=== PATIENT | male | born 1955 | race Caucasian/White ===

== ENCOUNTER 2019-11-27 08:00 | Inpatient (IN) | payer BC, MEDICARE ==
[2019-11-29] MEDS ORDERED: Scopolamine 1.5 MG Transdermal Patch TRDERM SCH (06:00)
[2019-11-29] MEDS ORDERED: Famotidine 20 MG/2 ML SDV IVPUSH SCH (06:00)
[2019-11-29] MEDS ORDERED: ceFAZolin 2 GM in Premix Bag 1 BAG IV SCH (08:00)
[2019-11-29] MEDS: Lactated Ringers 1,000 ML IV SCH ×2 (10:06→15:29)
[2019-11-29] MEDS ORDERED: Bupivacaine 0.5% 10 ML SDV ONE ×2 (10:20→10:59)
[2019-11-29] MEDS ORDERED: fentaNYL 100 MCG/2 ML SDV ONE (10:22)
[2019-11-29] MEDS ORDERED: Midazolam 1 MG/ML 2 ML SDV ONE (10:22)
[2019-11-29] MEDS ORDERED: Propofol 200 MG/20 ML SDV ONE (10:22)
[2019-11-29] MEDS ORDERED: Ondansetron 4 MG/2 ML SDV ONE (10:24)
[2019-11-29] MEDS ORDERED: Ketorolac 30 MG/ML SDV ONE (10:24)
[2019-11-29] MEDS ORDERED: Lidocaine 2% 5 ML SDV ONE (10:24)
[2019-11-29] MEDS ORDERED: Glycopyrrolate 0.2 MG/ML SDV ONE (10:24)
--- NOTE | 2019-11-29 10:39 | PCM.PREANE ---
Preanesthetic Assessment - Anesthesia/Transfusion/Family Hx Anesthesia History: Prior Anesthesia Without Reaction Family History of Anesthesia Reaction: No Transfusion History: No Prior Transfusion(s) - Review of Systems General: No Symptoms Pulmonary: No Symptoms Cardiovascular: No Symptoms Gastrointestinal: No Symptoms Neurological: No Symptoms - Physical Assessment NPO Status Date: 11/28/19 NPO Status Time: 21:00 Vital Signs: Last Vital Signs Temp 97.2 F 11/29/19 09:50 Pulse 79 11/29/19 09:50 Resp 18 11/29/19 09:50 BP 166/100 H 11/29/19 09:50 Pulse Ox 100 11/29/19 09:50 Height: 5 ft 9 in Weight: 106.594 kg ASA Class: 2 Mental Status: Alert & Oriented x3 Airway Class: Mallampati = 2 ROM/Head Extension: Full Lungs: Clear to Auscultation, Normal Respiratory Effort Cardiovascular: Regular Rate, Regular Rhythm - Allergies Allergies/Adverse Reactions: Allergies Allergy/AdvReac Type Severity Reaction Status Date / Time No Known Allergies Allergy Verified 11/24/19 11:20 - Blood Blood Available: No - Anesthesia Plan Pre-Op Medication Ordered: None - Acknowledgements Anesthesia Type Planned: Spinal Pt an Appropriate Candidate for the Planned Anesthesia: Yes Alternatives and Risks of Anesthesia Discussed w Pt/Guardian: Yes Pt/Guardian Understands and Agrees with Anesthesia Plan: Yes Additional Comments: PMH: untreated htn, glaucoma spinal with sedation PreAnesthesia Questionnaire HEENT History: Reports: Glaucoma Other HEENT History: wears glasses, top denture, bottom partial Cardiovascular History: Reports: Other (See Below) Other Cardiovascular History: elevated BP at times, on no prescribed medication Respiratory History: Reports: None Gastrointestinal History: Reports: None Genitourinary History: Reports: Renal Calculus Musculoskeletal History: Reports: Osteoarthritis Neurological History: Reports: None Psychiatric History: Reports: None Endocrine/Metabolic History: Reports: Obesity/BMI 30+ Hematologic History: Reports: None Immunologic History: Reports: None Oncologic (Cancer) History: Reports: None Dermatologic History: Reports: None - Past Surgical History Head Surgeries/Procedures: Reports: None HEENT Surgical History: Reports: Tonsillectomy Cardiovascular Surgical History: Reports: None Respiratory Surgical History: Reports: None GI Surgical History: Reports: None Male Surgical History: Reports: Lithotripsy (ESWL) Endocrine Surgical History: Reports: None Neurological Surgical History: Reports: None Musculoskeletal Surgical History: Reports: Other (See Below) Other Musculoskeletal Surgeries/Procedures:: surgery for rt arm injury Oncologic Surgical History: Reports: None Dermatological Surgical History: Reports: None - SUBSTANCE USE Smoking Status *Q: Never Smoker Recreational Drug Use History: No - HOME MEDS Home Medications: Home Meds Glucosam/Chond/Collagen/Hyalur [Glucosamine Chondroitin] 4 tab PO DAILY [History] Latanoprost/Pf [Latanoprost 0.005% Eye Drop] 1 drop EYEBOTH DAILY 11/24/19 [ History] Multivitamin [Multivitamins] 1 tab PO DAILY 11/24/19 [History] Naproxen Sodium [Aleve] 4 tab PO DAILY 11/24/19 [History] Coleman-3 Fatty Acids/Fish Oil [Fish Oil 1,200 mg Softgel] 2 tab PO DAILY [History] - CURRENT (IN HOUSE) MEDS Current Meds: Current Medications Famotidine (Pepcid) 40 mg IVPUSH ONARRIVE [facility] Stop: 11/29/19 16:00 Last Admin: 11/29/19 10:11 Dose: 40 mg Cefazolin Sodium/Dextrose 2 gm (/ Premix) 50 mls @ 100 mls/hr IV ONCALL [facility] Stop: 11/29/19 16:00 Ropivacaine 49.25 ml/Ketorolac Tromethamine 30 mg/Epinephrine HCl 0.5 mg/ Clonidine HCl 80 mcg/ Sodium Chloride 75 mls @ 50 mls/sec INJECT ASDIRECTED [facility] Lactated Ringer's (Ringers, Lactated) 1,000 mls @ 100 mls/hr IV ASDIRECTED [facility] Last Admin: 11/29/19 10:06 Dose: 100 mls/hr Scopolamine (Transderm-Scop) 1.5 mg TRDERM ONARRIVE [facility] Last Admin: 11/29/19 10:08 Dose: 1.5 mg Discontinued Medications Bupivacaine HCl (Sensorcaine-Mpf 0.5%) Confirm Administered Dose 10 ml .ROUTE .STK-MED ONE Stop: 11/29/19 10:21 Fentanyl (Sublimaze) Confirm Administered Dose 100 mcg .ROUTE .STK-MED ONE Stop: 11/29/19 10:23 Glycopyrrolate (Robinul) Confirm Administered Dose 0.2 mg .ROUTE .STK-MED ONE Stop: 11/29/19 10:25 Ketorolac Tromethamine (Toradol) Confirm Administered Dose 30 mg .ROUTE .STK- MED ONE Stop: 11/29/19 10:25 Lidocaine (Xylocaine-Mpf 2%) Confirm Administered Dose 5 ml .ROUTE .STK-MED ONE Stop: 11/29/19 10:25 Midazolam HCl (Versed 1 Mg/Ml) Confirm Administered Dose 2 mg .ROUTE .STK-MED ONE Stop: 11/29/19 10:23 Ondansetron HCl (Zofran) Confirm Administered Dose 4 mg .ROUTE .STK-MED ONE Stop: 11/29/19 10:25 Propofol (Diprivan 20 Ml) Confirm Administered Dose 200 mg .ROUTE .STK-MED ONE Stop: 11/29/19 10:23 Tranexamic Acid (Cyklokapron) 1,000 mg TOP ASDIRECTED ONE Stop: 11/29/19 06:01 Tranexamic Acid (Cyklokapron) Confirm Administered Dose 1,000 mg .ROUTE .STK- MED ONE Stop: 11/29/19 10:35
[2019-11-29] MEDS ORDERED: ceFAZolin 1 GM Vial ONE (11:25)
[2019-11-29] MEDS ORDERED: Sodium Chloride 0.9% 20 ML ONE (11:25)
[2019-11-29] MEDS ORDERED: Phenylephrine/Normal Saline 100 MCG/ML 10 ML Syringe ONE ×2 (11:41→12:48)
[2019-11-29] MEDS ORDERED: Ropivacaine 49.25 ML, Ketorolac 30 MG, EPINEPHrine 0.5 MG, cloNIDine 80 MCG in Sodium C... INJECT SCH (12:45)
[2019-11-29] MEDS ORDERED: traMADol 50 MG Tab PO PRN (13:26)
[2019-11-29] MEDS ORDERED: Acetaminophen/oxyCODONE 325-5 MG Tab PO PRN (13:26)
[2019-11-29] MEDS ORDERED: Morphine 2 MG/ML Syringe IVPUSH PRN (13:26)
[2019-11-29] MEDS ORDERED: Aluminum Hydroxide/Magnesium Hydroxide/Simethicone Susp 30 ML Cup PO PRN (13:26)
[2019-11-29] MEDS ORDERED: Bisacodyl 10 MG Supp RECTAL PRN (13:26)
[2019-11-29] MEDS ORDERED: Sodium Chloride 0.9% 10 ML Syringe FLUSH PRN (13:26)
[2019-11-29] MEDS ORDERED: Docusate Sodium 100 MG Cap PO PRN (13:26)
[2019-11-29] MEDS ORDERED: Sodium Chloride 0.9% 2.5 ML Syringe FLUSH PRN (13:26)
[2019-11-29] MEDS ORDERED: diphenhydrAMINE 25 MG Cap PO PRN (13:26)
[2019-11-29] MEDS ORDERED: Ondansetron 4 MG/2 ML SDV IVPUSH PRN (13:26)
--- NOTE | 2019-11-29 14:23 | PCM.OPNOTE ---
- General Post-Op/Procedure Note Date of Surgery/Procedure: 11/29/19 Operative Procedure(s): left medial pka Pre Op Diagnosis: left knee primary oa Post-Op Diagnosis: Same Anesthesia Technique: General LMA, Spinal Primary Surgeon: Josemanuel Gupta Anesthesia Provider: Florin Longo Welt Pocket Machine Operator: Ellen Nichole EBL in mLs: 50 Complications: None Condition: Good Free Text/Narrative:: Intake & Output 11/28/19 11/29/19 11/29/19 22:59 06:59 14:59 Intake Total 1800 Output Total 400 Balance 1400
[2019-11-29] MEDS: Ketorolac 30 MG/ML SDV IVPUSH SCH ×2 (16:19→18:34)
--- NOTE | 2019-11-29 16:57 | PCM.POSTAN ---
POST ANESTHESIA ASSESSMENT - MENTAL STATUS Mental Status: Alert, Oriented - VITAL SIGNS Vital Signs: Last Vital Signs Temp 97 F 11/29/19 14:15 Pulse 69 11/29/19 16:15 Resp 18 11/29/19 16:15 BP 145/64 H 11/29/19 16:15 Pulse Ox 97 11/29/19 16:15 - RESPIRATORY Respiratory Status: Respiratory Rate WNL, Airway Patent, O2 Saturation Stable - CARDIOVASCULAR CV Status: Pulse Rate WNL, Blood Pressure Stable - GASTROINTESTINAL GI Status: No Symptoms - POST OP HYDRATION Hydration Status: Adequate & Stable
--- NOTE | 2019-11-29 16:57 | PCM48HPAN ---
Post Anesthesia Note - EVALUATION WITHIN 48HRS OF ANESTHETIC Vital Signs in Normal Range: Yes Patient Participated in Evaluation: Yes Respiratory Function Stable: Yes Airway Patent: Yes Cardiovascular Function Stable: Yes Hydration Status Stable: Yes Pain Control Satisfactory: Yes Nausea and Vomiting Control Satisfactory: Yes Mental Status Recovered: Yes Vital Signs: Last Vital Signs Temp 97 F 11/29/19 14:15 Pulse 69 11/29/19 16:15 Resp 18 11/29/19 16:15 BP 145/64 H 11/29/19 16:15 Pulse Ox 97 11/29/19 16:15
--- NOTE | 2019-11-29 17:27 | OR ---
SURGEON: Josemanuel Gupta DATE OF PROCEDURE: 11/29/2019 PREOPERATIVE DIAGNOSIS: Left knee primary osteoarthritis. POSTOPERATIVE DIAGNOSIS: Left knee primary osteoarthritis. PROCEDURE: Left knee medial partial knee arthroplasty. PRIMARY SURGEON: Josemanuel Gupta DO. COPY CENTER ASSOCIATE: KELLEY Ziegler. ROLE OF COPY CENTER ASSOCIATE: Nurse practitioner, KELLEY Ziegler, played an essential role in assisting in this case, helping to position the patient, retract structures as needed, as well as suturing and cutting sutures as indicated. Her presence improved patient's safety and decreased operative time. FLUID: Lactated Ringer's solution. ESTIMATED BLOOD LOSS: 50 mL. COMPLICATION: None. SPECIMEN: None. DISCHARGE DISPOSITION: Stable to PACU. HISTORY AND INDICATION FOR PROCEDURE: The patient was seen preoperatively in the clinic. He failed nonoperative treatment. Preoperative imaging confirmed the above-mentioned diagnosis. Risks and benefits of the procedure explained to the patient. Informed consent was obtained. DETAILS OF PROCEDURE: The patient was seen preoperatively by myself and the Anesthesia staff in the preoperative holding area where the operative site was marked. He was brought to the operative suite by Anesthesia staff where spinal was administered and also an LMA. All extremities found to be well padded. The right lower extremity was placed into a stirrup. The left lower extremity was placed into a thigh hampton. A well-padded tourniquet had been placed on the left thigh and left lower extremity was then prepped and draped in a sterile manner. Time-out was called identifying the correct patient, the correct procedure, the correct site, and that antibiotics had been given within appropriate period of time. Left lower extremity was exsanguinated and tourniquet was raised to 250 mmHg. A medial incision was made from the medial superior aspect of the patella down to the medial aspect of the tibial tubercle. A medial parapatellar arthrotomy was then made. Gelpis were used for retraction. A partial synovectomy was done on the medial side as well as removing the infrapatellar fat pad. The anterior portion of the medial meniscus was removed using Bovie electrocautery. Bovie electrocautery was used for hemostasis during the case as well as tranexamic acid. The proximal tibia was exposed using Bovie electrocautery. I then used an extramedullary tibial guide with a 2 mm proximal cut, pinned this in place in line from tibial tubercle to the 2nd metatarsal and then made my vertical and then horizontal cut. This provided one solid piece of the tibia. This measured a size 4. I then removed any extra bone from the posterior portion of the tibia with osteotomes, curettes, and Tasha. I then removed the posterior portion of the medial meniscus. We then focused on the femur. I brought the leg out in full extension and pinned my distal femoral cutting guide into place and then made my distal femoral cut, which was very little. I then removed the cutting guide, and then using the 7 mm size 4 paddle, marked this throughout range of motion and then genaro a line between the anterior and posterior portion of the distal condyle. I then pinned my chamfer guide in place and then made my chamfer cuts and my two lug cuts. After removing this, it did look like there was a large portion of the posterior condyle removed and there certainly was, however, after removing it, this did line up with my femoral component. I then trialed and had it go up to an 11, however, it did provide good stability throughout range of motion. I then focused on my base plate preparation for my tibia. I used a lamina mill hand plate mill and then used the guide for my gouge cut and then my lug. Lug portion was reamed. I then copiously irrigated with saline. I then cemented my femur and tibial components in good position. I removed any extra cement. I used a paddle and kept the knee in about 20 degrees of flexion. Let the cement dry, then removed any extra cement. I copiously irrigated with saline, provided hemostasis for any small bleeders with Bovie electrocautery, and then inserted my final size 4, 11 mm polyethylene. This provided excellent stability throughout range of motion and corrected slight varus deformity and to approximately 3 to 5 degrees of valgus. We then copiously irrigated with saline. My staff physical therapy assistant then closed with #1 Stratafix in the parapatellar arthrotomy, #1 Stratafix subcutaneously, and then skin lara followed by Betadine-soaked Adaptic, fluffs, ABDs, and an Adalid wrap. The patient was then allowed to awaken from general anesthesia and taken to the PACU in stable condition. [id number] / MODL /[id number]
[2019-11-29] MEDS: ceFAZolin 2 GM in Premix Bag 1 BAG IV SCH (20:47)
[2019-11-30] MEDS: Ketorolac 30 MG/ML SDV IVPUSH SCH (01:33)
[2019-11-30] MEDS: ceFAZolin 2 GM in Premix Bag 1 BAG IV SCH (04:27)
--- NOTE | 2019-11-30 07:29 | PCM48HPAN ---
Post Anesthesia Note - EVALUATION WITHIN 48HRS OF ANESTHETIC Vital Signs in Normal Range: Yes Patient Participated in Evaluation: Yes Respiratory Function Stable: Yes Airway Patent: Yes Cardiovascular Function Stable: Yes Hydration Status Stable: Yes Pain Control Satisfactory: Yes Nausea and Vomiting Control Satisfactory: Yes Mental Status Recovered: Yes Vital Signs: Last Vital Signs Temp 36.4 C 11/30/19 03:30 Pulse 65 11/30/19 03:30 Resp 16 11/30/19 03:30 BP 128/74 11/30/19 03:30 Pulse Ox 96 11/30/19 03:30 - COMMENTS/OBSERVATIONS Free Text/Narrative:: patient sitting up in chair smiling throughout our entire conversation. He appears comfortable and in no acute distress. There were no apparent anesthetic complications at this time. Discharge from anesthesia care.
[2019-11-30] MEDS ORDERED: Polyethylene Glycol 3350 Powder 17 GM Packet PO SCH (09:00)
[2019-11-30] MEDS ORDERED: Aspirin 325 MG Tab PO SCH (09:00)
[2019-11-30] MEDS ORDERED: Celecoxib 100 MG Cap PO SCH (09:00)
[2019-11-30] MEDS ORDERED: Famotidine 20 MG Tab PO SCH (09:00)
--- NOTE | 2019-11-30 10:39 | PCM.SURGPN ---
- General Info Date of Service: 11/30/19 (829) Date of Surgery/Procedure: 11/29/19 POD#: 1 Post-Op Diagnosis: s/p LEFT knee medial partial knee arthroplasty Functional Status: Reports: Pain Controlled, Tolerating Diet, Ambulating (per self with use of walker, up to bathroom), Urinating - Review of Systems General: Reports: No Symptoms. Denies: Fever HEENT: Reports: No Symptoms Pulmonary: Reports: No Symptoms Cardiovascular: Reports: No Symptoms Gastrointestinal: Denies: Nausea, Vomiting Musculoskeletal: Reports: Joint Pain (reports minimal pain left knee) Neurological: Reports: No Symptoms Psychiatric: Reports: No Symptoms - Patient Data Vitals - Most Recent: Last Vital Signs Temp 36.7 C 11/30/19 08:00 Pulse 75 11/30/19 08:00 Resp 16 11/30/19 08:00 BP 128/89 11/30/19 08:00 Pulse Ox 99 11/30/19 08:00 Weight - Most Recent: 106.594 kg I&O - Last 24 Hours: Intake & Output 11/29/19 11/30/19 11/30/19 22:59 06:59 14:59 Intake Total 1007 1365 Output Total 650 850 Balance 357 515 Lab Results Last 24 Hrs: Laboratory Results - last 24 hr 11/30/19 Range/Units 05:51 Hgb 13.7 (13.0-17.0) g/dL Hct 41.6 (38.0-50.0) % Med Orders - Current: Current Medications Al Hydroxide/Mg Hydroxide (Mag-Al Plus) 30 ml PO Q4H PRN PRN Reason: Indigestion Aspirin (Aspirin) 325 mg PO DAILY [facility] Last Admin: 11/30/19 08:08 Dose: 325 mg Bisacodyl (Dulcolax) 10 mg RECTAL DAILY PRN PRN Reason: Constipation Celecoxib (Celebrex) 200 mg PO DAILY [facility] Last Admin: 11/30/19 08:08 Dose: 200 mg Diphenhydramine HCl (Benadryl) 25 - 50 mg PO Q6H PRN PRN Reason: Itching Docusate Sodium (Colace) 100 mg PO BID PRN PRN Reason: Constipation Famotidine (Pepcid) 40 mg PO DAILY [facility] Last Admin: 11/30/19 08:09 Dose: 40 mg Lactated Ringer's (Ringers, Lactated) 1,000 mls @ 100 mls/hr IV ASDIRECTED [facility] Last Admin: 11/29/19 15:29 Dose: 100 mls/hr Morphine Sulfate (Morphine) 1 - 2 mg IVPUSH Q3H PRN PRN Reason: Pain Ondansetron HCl (Zofran) 4 mg IVPUSH Q6H PRN PRN Reason: Nausea/Vomiting Oxycodone/Acetaminophen (Percocet 325-5 Mg) 1 - 2 tab PO Q4H PRN PRN Reason: Pain Polyethylene Glycol (Miralax) 17 gm PO DAILY [facility] Last Admin: 11/30/19 08:09 Dose: 17 gm Scopolamine (Transderm-Scop) 1.5 mg TRDERM ONARRIVE [facility] Last Admin: 11/29/19 10:08 Dose: 1.5 mg Sodium Chloride (Saline Flush) 10 ml FLUSH ASDIRECTED PRN PRN Reason: Keep Vein Open Sodium Chloride (Saline Flush) 2.5 ml FLUSH ASDIRECTED PRN PRN Reason: Keep Vein Open Tramadol HCl (Ultram) 50 - 100 mg PO Q6H PRN PRN Reason: Pain Discontinued Medications Bupivacaine HCl (Sensorcaine-Mpf 0.5%) Confirm Administered Dose 10 ml .ROUTE .STK-MED ONE Stop: 11/29/19 10:21 Bupivacaine HCl (Sensorcaine-Mpf 0.5%) Confirm Administered Dose 10 ml .ROUTE .STK-MED ONE Stop: 11/29/19 11:00 Cefazolin Sodium (Ancef) Confirm Administered Dose 2 gm .ROUTE .STK-MED ONE Stop: 11/29/19 11:26 Famotidine (Pepcid) 40 mg IVPUSH ONARRIVE [facility] Stop: 11/29/19 16:00 Last Admin: 11/29/19 10:11 Dose: 40 mg Fentanyl (Sublimaze) Confirm Administered Dose 100 mcg .ROUTE .STK-MED ONE Stop: 11/29/19 10:23 Glycopyrrolate (Robinul) Confirm Administered Dose 0.2 mg .ROUTE .STK-MED ONE Stop: 11/29/19 10:25 Cefazolin Sodium/Dextrose 2 gm (/ Premix) 50 mls @ 100 mls/hr IV ONCALL [facility] Stop: 11/29/19 16:00 Ropivacaine 49.25 ml/Ketorolac Tromethamine 30 mg/Epinephrine HCl 0.5 mg/ Clonidine HCl 80 mcg/ Sodium Chloride 75 mls @ 50 mls/sec INJECT ASDIRECTED [facility] Sodium Chloride (Normal Saline) Confirm Administered Dose 20 mls @ as directed .ROUTE .STK-MED ONE Stop: 11/29/19 11:26 Cefazolin Sodium/Dextrose 2 gm (/ Premix) 50 mls @ 100 mls/hr IV Q8H [facility] Stop: 11/30/19 04:29 Last Admin: 11/30/19 04:27 Dose: 100 mls/hr Ketorolac Tromethamine (Toradol) Confirm Administered Dose 30 mg .ROUTE .STK- MED ONE Stop: 11/29/19 10:25 Ketorolac Tromethamine (Toradol) 30 mg IVPUSH Q6H [facility] Stop: 11/30/19 05:00 Last Admin: 11/30/19 01:33 Dose: 30 mg Lidocaine (Xylocaine-Mpf 2%) Confirm Administered Dose 5 ml .ROUTE .STK-MED ONE Stop: 11/29/19 10:25 Midazolam HCl (Versed 1 Mg/Ml) Confirm Administered Dose 2 mg .ROUTE .STK-MED ONE Stop: 11/29/19 10:23 Ondansetron HCl (Zofran) Confirm Administered Dose 4 mg .ROUTE .STK-MED ONE Stop: 11/29/19 10:25 Phenylephrine HCl (Phenylephrine In Ns 100 Mcg/Ml) Confirm Administered Dose 1 mg .ROUTE .STK-MED ONE Stop: 11/29/19 11:42 Phenylephrine HCl (Phenylephrine In Ns 100 Mcg/Ml) Confirm Administered Dose 1 mg .ROUTE .STK-MED ONE Stop: 11/29/19 12:49 Propofol (Diprivan 20 Ml) Confirm Administered Dose 200 mg .ROUTE .STK-MED ONE Stop: 11/29/19 10:23 Tranexamic Acid (Cyklokapron) 1,000 mg TOP ASDIRECTED ONE Stop: 11/29/19 06:01 Last Admin: 11/29/19 16:19 Dose: Not Given Tranexamic Acid (Cyklokapron) Confirm Administered Dose 1,000 mg .ROUTE .STK- MED ONE Stop: 11/29/19 10:35 - Exam Wound/Incisions: Dressing Dry and Intact (surgical dressing dry. Removed for incision assessment and new AquaCell bandage applied), No Drainage. No: Erythema Quality Assessment: DVT Prophylaxis (ASA, SCDs bilaterally and early ambulation) General: Alert, Oriented, Cooperative, No Acute Distress HEENT: Pupils Equal Lungs: Normal Respiratory Effort Cardiovascular: Regular Rate (PP2+) Extremities: Normal Capillary Refill, Other (Sensation grossly intact to LE. ). No: Pedal Edema, Gomez's Sign (No calf pain, erythema or swelling. ) Skin: Warm, Dry Neurological: Normal Speech Psy/Mental Status: Alert, Normal Affect, Normal Mood Sepsis Event Note - Evaluation Sepsis Screening Result: No Definite Risk - Focused Exam Vital Signs: Vital Signs Temp Pulse Resp BP Pulse Ox 11/30/19 08:00 36.7 C 75 16 128/89 99 11/30/19 03:30 36.4 C 65 16 128/74 96 11/30/19 00:00 36.2 C 71 16 119/71 96 Date Exam was Performed: 11/30/19 Time Exam was Performed: 10:34 - Problem List Review Problem List Initiated/Reviewed/Updated: Yes - My Orders Last 24 Hours: Active Orders 24 hr Category Date Time Status Communication Order [RC] PRN Care 11/29/19 13:26 Active Cooling Warming Measures [RC] ASDIRECTED Care 11/29/19 13:27 Active Neurovascular Check [RC] Q2HR Care 11/29/19 13:26 Active Notify Provider Vital Signs [RC] ASDIRECTED Care 11/29/19 13:26 Active RT Incentive Spirometry [RC] Q1HWA Care 11/29/19 13:26 Active Vital Signs [RC] Q4H Care 11/29/19 13:26 Active Wound Care [RC] DAILY Care 11/29/19 13:26 Active PT Evaluation and Treatment [CONS] Routine Cons 11/29/19 13:26 Active Regular Diet [DIET] Diet 11/29/19 Dinner Active HEMOGLOBIN/HEMATOCRIT,HH [HEME] DAILY Lab 12/01/19 06:00 Ordered Acetaminophen/oxyCODONE [Percocet 325-5 MG] Med 11/29/19 13:26 Active 1 - 2 tab PO Q4H PRN Alum Hydrox/Mag Hydrox/Simeth [Mag-Al Plus] Med 11/29/19 13:26 Active 30 ml PO Q4H PRN Aspirin Med 11/30/19 09:00 Active 325 mg PO DAILY Celecoxib [CeleBREX] Med 11/30/19 09:00 Active 200 mg PO DAILY Docusate Sodium [Colace] Med 11/29/19 13:26 Active 100 mg PO BID PRN Famotidine [Pepcid] Med 11/30/19 09:00 Active 40 mg PO DAILY Morphine Med 11/29/19 13:26 Active 1 - 2 mg IVPUSH Q3H PRN Ondansetron [Zofran] Med 11/29/19 13:26 Active 4 mg IVPUSH Q6H PRN Sodium Chloride 0.9% [Saline Flush] Med 11/29/19 13:26 Active 10 ml FLUSH ASDIRECTED PRN Sodium Chloride 0.9% [Saline Flush] Med 11/29/19 13:26 Active 2.5 ml FLUSH ASDIRECTED PRN bisacodyL [Dulcolax] Med 11/29/19 13:26 Active 10 mg RECTAL DAILY PRN diphenhydrAMINE [Benadryl] Med 11/29/19 13:26 Active 25 - 50 mg PO Q6H PRN polyethylene glycoL 3350 [MiraLAX] Med 11/30/19 09:00 Active 17 gm PO DAILY traMADol [Ultram] Med 11/29/19 13:26 Active 50 - 100 mg PO Q6H PRN Convert IV to Saline Lock [OM.PC] PRN Ot 11/29/19 13:30 Ordered Convert IV to Saline Lock [OM.PC] PRN Oth 11/30/19 13:30 Ordered Ice Therapy [OM.PC] Routine Ot 11/29/19 13:26 Ordered Medication Orders Al Hydroxide/Mg Hydroxide (Mag-Al Plus) 30 ml PO Q4H PRN PRN Reason: Indigestion Aspirin (Aspirin) 325 mg PO DAILY [facility] Last Admin: 11/30/19 08:08 Dose: 325 mg Bisacodyl (Dulcolax) 10 mg RECTAL DAILY PRN PRN Reason: Constipation Celecoxib (Celebrex) 200 mg PO DAILY [facility] Last Admin: 11/30/19 08:08 Dose: 200 mg Diphenhydramine HCl (Benadryl) 25 - 50 mg PO Q6H PRN PRN Reason: Itching Docusate Sodium (Colace) 100 mg PO BID PRN PRN Reason: Constipation Famotidine (Pepcid) 40 mg PO DAILY [facility] Last Admin: 11/30/19 08:09 Dose: 40 mg Lactated Ringer's (Ringers, Lactated) 1,000 mls @ 100 mls/hr IV ASDIRECTED [facility] Last Admin: 11/29/19 15:29 Dose: 100 mls/hr Infusion: 11/29/19 15:29 Dose: 100 mls/hr Admin: 11/29/19 10:06 Dose: 100 mls/hr Morphine Sulfate (Morphine) 1 - 2 mg IVPUSH Q3H PRN PRN Reason: Pain Ondansetron HCl (Zofran) 4 mg IVPUSH Q6H PRN PRN Reason: Nausea/Vomiting Oxycodone/Acetaminophen (Percocet 325-5 Mg) 1 - 2 tab PO Q4H PRN PRN Reason: Pain Polyethylene Glycol (Miralax) 17 gm PO DAILY [facility] Last Admin: 11/30/19 08:09 Dose: 17 gm Scopolamine (Transderm-Scop) 1.5 mg TRDERM ONARRIVE [facility] Last Admin: 11/29/19 10:08 Dose: 1.5 mg Sodium Chloride (Saline Flush) 10 ml FLUSH ASDIRECTED PRN PRN Reason: Keep Vein Open Sodium Chloride (Saline Flush) 2.5 ml FLUSH ASDIRECTED PRN PRN Reason: Keep Vein Open Tramadol HCl (Ultram) 50 - 100 mg PO Q6H PRN PRN Reason: Pain - Assessment Assessment (Free Text/Narrative):: s/p LEFT knee medial partial arthroplasty - Plan Plan (Free Text/Narrative):: Morning of POD#1, Salo is doing well. Sitting up in chair for breakfast this AM. Last night, he sat at the side of his bed for supper. VSS/Afebrile. Tolerating food/fluids without N/V. Reports minima pain, managed with IV Toradol. Has not necessitated oral Percocet. Independently up to the bathroom with walker, voiding. Surgical dressing removed. Incision CDI with lara. No active drainage. No surrounding erythema. Minimal soft tissue swelling. Using Polar Care ice. DVT prophylaxis : ASA 325mg started today, SCDs bilaterally started in surgery and continued post-operatively, and early ambulation. Compression stockings to be applied this morning. Completed Ancef 2gm IV q8h for an additional 2 doses after surgery. d/t time of his surgery, he did not receive formal PT yesterday. He will have PT today. He feels ready for discharge home today, and I agree with his plan. He already has a walker at home. Will sent Rx for ASA, Celebrex and pain medication to [facility].
--- NOTE | 2019-12-01 08:19 | PCM.DCSUM1 ---
Discharge Summary - Hospital Course Free Text/Narrative:: document #[id number] - Discharge Data Discharge Date: 11/30/19 Discharge Disposition: Home, Self-Care 01 Condition: Good - Referral to Home Health Primary Care Physician: PCP None - Patient Summary/Data Operative Procedure(s) Performed: left medial pka Consults: Consultations 11/29/19 13:26 PT Evaluation and Treatment [CONS] Routine - Patient Instructions Diet: Usual Diet as Tolerated Activity: Apply Ice, Elevate Extremity, No Strenuous Activities Driving: Do Not Drive Showering/Bathing: May Shower Notify Provider of: Fever, Increased Pain, Swelling and Redness, Drainage, Nausea and/or Vomiting Other/Special Instructions: PT as scheduled. If not having moderate pain, substitute Tylenol 325mg 2 tabs po q[address]h in place of narcotic Rx. (Tylenol max/ day is 4000mg. Your pain medication does contain 325mg of acetaminophen). - Discharge Plan Prescriptions/Med Rec: Acetaminophen/oxyCODONE [Percocet 325-5 MG] 1 tab PO Q6H PRN #30 tablet PRN Reason: Pain Aspirin 325 mg PO DAILY #30 tablet Celecoxib [CeleBREX] 200 mg PO DAILY #60 cap Home Medications: Home Meds Glucosam/Chond/Collagen/Hyalur [Glucosamine Chondroitin] 4 tab PO DAILY [History] Latanoprost/Pf [Latanoprost 0.005% Eye Drop] 1 drop EYEBOTH DAILY 11/24/19 [ History] Multivitamin [Multivitamins] 1 tab PO DAILY 11/24/19 [History] [place]-3 Fatty Acids/Fish Oil [Fish Oil 1,200 mg Softgel] 2 tab PO DAILY [History] Acetaminophen/oxyCODONE [Percocet 325-5 MG] 1 tab PO Q6H PRN #30 tablet [Rx] Aspirin 325 mg PO DAILY #30 tablet 11/30/19 [Rx] Celecoxib [CeleBREX] 200 mg PO DAILY #60 cap 11/30/19 [Rx] Patient Handouts: Acetaminophen; Oxycodone tablets, Celecoxib capsules, Total Knee Replacement, Care After, [id number], Aspirin, ASA oral tablets Referrals: Ellen Nichole NP [Nurse Practitioner] - 12/21/19 10:00 am - Discharge Summary/Plan Comment DC Time >30 min.: No - Patient Data Vitals - Most Recent: Last Vital Signs Temp 36.2 C 11/30/19 12:00 Pulse 76 11/30/19 12:00 Resp 18 11/30/19 12:00 BP 154/81 H 11/30/19 12:00 Pulse Ox 99 11/30/19 12:00 Weight - Most Recent: 106.594 kg Med Orders - Current: Current Medications Discontinued Medications Al Hydroxide/Mg Hydroxide (Mag-Al Plus) 30 ml PO Q4H PRN PRN Reason: Indigestion Aspirin (Aspirin) 325 mg PO DAILY [facility] Last Admin: 11/30/19 08:08 Dose: 325 mg Bisacodyl (Dulcolax) 10 mg RECTAL DAILY PRN PRN Reason: Constipation Bupivacaine HCl (Sensorcaine-Mpf 0.5%) Confirm Administered Dose 10 ml .ROUTE .STK-MED ONE Stop: 11/29/19 10:21 Bupivacaine HCl (Sensorcaine-Mpf 0.5%) Confirm Administered Dose 10 ml .ROUTE .STK-MED ONE Stop: 11/29/19 11:00 Cefazolin Sodium (Ancef) Confirm Administered Dose 2 gm .ROUTE .STK-MED ONE Stop: 11/29/19 11:26 Celecoxib (Celebrex) 200 mg PO DAILY [facility] [place] Last Admin: 11/30/19 08:08 Dose: 200 mg Diphenhydramine HCl (Benadryl) 25 - 50 mg PO Q6H PRN PRN Reason: Itching Docusate Sodium (Colace) 100 mg PO BID PRN PRN Reason: Constipation Famotidine (Pepcid) 40 mg IVPUSH ONARRIVE [facility] [place] Stop: 11/29/19 16:00 Last Admin: 11/29/19 10:11 Dose: 40 mg Famotidine (Pepcid) 40 mg PO DAILY [facility] [place] Last Admin: 11/30/19 08:09 Dose: 40 mg Fentanyl (Sublimaze) Confirm Administered Dose 100 mcg .ROUTE .STK-MED ONE Stop: 11/29/19 10:23 Glycopyrrolate (Robinul) Confirm Administered Dose 0.2 mg .ROUTE .STK-MED ONE Stop: 11/29/19 10:25 Cefazolin Sodium/Dextrose 2 gm (/ Premix) 50 mls @ 100 mls/hr IV ONCALL [facility] [place] Stop: 11/29/19 16:00 Ropivacaine 49.25 ml/Ketorolac Tromethamine 30 mg/Epinephrine HCl 0.5 mg/ Clonidine HCl 80 mcg/ Sodium Chloride 75 mls @ 50 mls/sec INJECT ASDIRECTED [facility] [place] Lactated Ringer's (Ringers, Lactated) 1,000 mls @ 100 mls/hr IV ASDIRECTED [facility] [place] Last Admin: 11/29/19 15:29 Dose: 100 mls/hr Sodium Chloride (Normal Saline) Confirm Administered Dose 20 mls @ as directed .ROUTE .STK-MED ONE Stop: 11/29/19 11:26 Cefazolin Sodium/Dextrose 2 gm (/ Premix) 50 mls @ 100 mls/hr IV Q8H [facility] [place] Stop: 11/30/19 04:29 Last Admin: 11/30/19 04:27 Dose: 100 mls/hr Ketorolac Tromethamine (Toradol) Confirm Administered Dose 30 mg .ROUTE .STK- MED ONE Stop: 11/29/19 10:25 Ketorolac Tromethamine (Toradol) 30 mg IVPUSH Q6H [facility] [place] Stop: 11/30/19 05:00 Last Admin: 11/30/19 01:33 Dose: 30 mg Lidocaine (Xylocaine-Mpf 2%) Confirm Administered Dose 5 ml .ROUTE .STK-MED ONE Stop: 11/29/19 10:25 Midazolam HCl (Versed 1 Mg/Ml) Confirm Administered Dose 2 mg .ROUTE .STK-MED ONE Stop: 11/29/19 10:23 Morphine Sulfate (Morphine) 1 - 2 mg IVPUSH Q3H PRN PRN Reason: Pain Ondansetron HCl (Zofran) Confirm Administered Dose 4 mg .ROUTE .STK-MED ONE Stop: 11/29/19 10:25 Ondansetron HCl (Zofran) 4 mg IVPUSH Q6H PRN PRN Reason: Nausea/Vomiting Oxycodone/Acetaminophen (Percocet 325-5 Mg) 1 - 2 tab PO Q4H PRN PRN Reason: Pain Last Admin: 11/30/19 13:16 Dose: 1 tab Phenylephrine HCl (Phenylephrine In Ns 100 Mcg/Ml) Confirm Administered Dose 1 mg .ROUTE .STK-MED ONE Stop: 11/29/19 11:42 Phenylephrine HCl (Phenylephrine In Ns 100 Mcg/Ml) Confirm Administered Dose 1 mg .ROUTE .STK-MED ONE Stop: 11/29/19 12:49 Polyethylene Glycol (Miralax) 17 gm PO DAILY [facility] [place] Last Admin: 11/30/19 08:09 Dose: 17 gm Propofol (Diprivan 20 Ml) Confirm Administered Dose 200 mg .ROUTE .STK-MED ONE Stop: 11/29/19 10:23 Scopolamine (Transderm-Scop) 1.5 mg TRDERM ONARRIVE [facility] [place] Last Admin: 11/29/19 10:08 Dose: 1.5 mg Sodium Chloride (Saline Flush) 10 ml FLUSH ASDIRECTED PRN PRN Reason: Keep Vein Open Sodium Chloride (Saline Flush) 2.5 ml FLUSH ASDIRECTED PRN PRN Reason: Keep Vein Open Tramadol HCl (Ultram) 50 - 100 mg PO Q6H PRN PRN Reason: Pain Last Admin: 11/30/19 14:09 Dose: 100 mg Tranexamic Acid (Cyklokapron) 1,000 mg TOP ASDIRECTED ONE Stop: 11/29/19 06:01 Last Admin: 11/29/19 16:19 Dose: Not Given Tranexamic Acid (Cyklokapron) Confirm Administered Dose 1,000 mg .ROUTE .STK- MED ONE Stop: 11/29/19 10:35
--- NOTE | 2019-12-01 16:57 | DISCH ---
DATE OF DISCHARGE: 11/30/2019 PRIMARY CARE PHYSICIAN: Dr. Shah ADMITTING DIAGNOSIS: Left knee primary osteoarthritis. DISCHARGE MEDICAL DIAGNOSIS: Status post left knee medial partial knee arthroplasty. HISTORY: This is 64-year-old male who failed conservative treatment for left knee pain, underwent left knee medial partial knee arthroplasty on 11/29/[address] Josemanuel Gupta. No known surgical complications. After PACU, inpatient to Med/Surg for postop care. HOSPITAL COURSE: Postoperatively, Salo did very well. Vital signs stable, afebrile. He had minimal pain postoperatively, overall managed with routine Toradol until postop day 1. Physical therapy was initiated in the hospital postop day 1. That morning, he was ambulating well independently with walker. Hemoglobin stable at 13.7. Antibiotic coverage included Ancef 2 g q.8 hours for 24 hours. Minimal drainage on surgical dressing. This was removed postop day 1 and incision assessed to be clean, dry, and intact with lara with no surrounding erythema or active drainage. Large Aquacel was applied. Diligent use of Polar Ice therapy. DVT prophylaxis included aspirin 325 mg, SCDs bilaterally, and early ambulation. The patient felt ready for discharge and was discharged postop day 1. DISCHARGE MEDICATIONS: 1. Percocet 5/325 mg 1 tablet q.6 hours p.r.n. 2. Aspirin 325 mg daily. 3. Celebrex 200 mg daily. 4. Glucosamine-chondroitin daily. 5. Latanoprost 0.005% eye drops, 1 drop both eyes daily. 6. Multivitamin daily. 7. [place]-3 fatty acids/fish oil daily. Discharged home postop day 1 after physical therapy sessions. He was discharged home with his . Followup appointment scheduled in 3 weeks for suture removal. He will begin physical therapy on December 04, 2019. He was advised to contact [facility] with any acute concerns or questions. NORBCHE / MODL /[id number]
== END 2019-11-30 14:20 | disposition home or self-care (01) | DRG 302 ==
LOC: MW.MS 11-29 09:30 → EDSTATUS 11-29 12:30
PROVIDERS: ADMIT Orthopaedic Surgery; ATTEND Orthopaedic Surgery
PROC: 0SRD0L9 Replacement of Left Knee Joint with Medial Unicondylar Synthetic Substitute, Cemented, Open Approach (ICD-10-PCS; principal; 2019-11-29)
DX: M17.12 Unilateral primary osteoarthritis, left knee (principal); F17.220 Nicotine dependence, chewing tobacco, uncomplicated; Z79.899 Other long term (current) drug therapy
CPT/HCPCS: 01402; 36415; 85014; 85018; 97116-GP; 97162-GP; A9270-GY; J0690; J1885; J2001; J2250; J2370; J2405; J2704; J3010; J3490; J7120

== ENCOUNTER 2020-10-28 09:20 | Day surgery (SDC) | payer BC, MEDICARE ==
[~2020-10-28 09:20] MED LIST: Famotidine 20 MG/2 ML SDV IVPUSH SCH; Lactated Ringers 1,000 ML IV SCH; Ropivacaine 49.25 ML, Ketorolac 30 MG, EPINEPHrine 0.5 MG, cloNIDine 80 MCG in Sodium C... INJECT SCH; Scopolamine 1.5 MG Transdermal Patch TRDERM SCH; Sodium Chloride 0.9% 20 ML ONE; Tranexamic Acid 1,000 MG in Sodium Chloride 0.9% 100 ML IV ONE; ceFAZolin 2 GM in Premix Bag 1 BAG IV SCH
[2020-10-28] MEDS ORDERED: fentaNYL 100 MCG/2 ML SDV ONE ×2 (09:28→11:11)
[2020-10-28] MEDS ORDERED: Midazolam 1 MG/ML 2 ML SDV ONE (09:28)
[2020-10-28] MEDS ORDERED: Propofol 200 MG/20 ML SDV ONE (09:28)
[2020-10-28] MEDS ORDERED: Bupivacaine 0.5% 30 ML SDV ONE (09:41)
[2020-10-28] MEDS ORDERED: ceFAZolin/Dextrose,Iso-Osmotic 2 GM/50 ML Duplex Bag IV ONE (09:48)
--- NOTE | 2020-10-28 10:08 | PCM.PREANE ---
Preanesthetic Assessment - Anesthesia/Transfusion/Family Hx Anesthesia History: Prior Anesthesia Without Reaction Family History of Anesthesia Reaction: No Transfusion History: No Prior Transfusion(s) - Review of Systems General: No Symptoms Pulmonary: No Symptoms Cardiovascular: No Symptoms Gastrointestinal: No Symptoms Neurological: No Symptoms Other: Reports: None - Physical Assessment NPO Status Date: 10/27/20 Height: 5 ft 9 in Weight: 104.326 kg ASA Class: 2 Mental Status: Alert & Oriented x3 Airway Class: Mallampati = 2 Dentition: Reports: Normal Dentition ROM/Head Extension: Full Lungs: Clear to Auscultation, Normal Respiratory Effort Cardiovascular: Regular Rate, Regular Rhythm - Lab Values: Laboratory Last Values SARS-CoV-2 RNA ([facility]) NEGATIVE (NEGATIVE) 10/28/20 08:09 - Allergies Allergies/Adverse Reactions: Allergies Allergy/AdvReac Type Severity Reaction Status Date / Time No Known Allergies Allergy Verified 10/08/20 08:39 - Blood Blood Available: No - Anesthesia Plan Pre-Op Medication Ordered: None - Acknowledgements Anesthesia Type Planned: Spinal Pt an Appropriate Candidate for the Planned Anesthesia: Yes Alternatives and Risks of Anesthesia Discussed w Pt/Guardian: Yes Pt/Guardian Understands and Agrees with Anesthesia Plan: Yes PreAnesthesia Questionnaire HEENT History: Reports: Glaucoma, Impaired Vision Other HEENT History: wears glasses, top denture, bottom partial Cardiovascular History: Reports: Hypertension Respiratory History: Reports: None Gastrointestinal History: Reports: None Genitourinary History: Reports: Renal Calculus Musculoskeletal History: Reports: Arthritis, Fracture Other Musculoskeletal History: fractured right arm Neurological History: Reports: None Psychiatric History: Reports: None Endocrine/Metabolic History: Reports: Obesity/BMI 30+ Hematologic History: Reports: None Immunologic History: Reports: None Oncologic (Cancer) History: Reports: None Dermatologic History: Reports: None - Infectious Disease History Infectious Disease History: Reports: None - Past Surgical History Head Surgeries/Procedures: Reports: None HEENT Surgical History: Reports: Tonsillectomy Cardiovascular Surgical History: Reports: None Respiratory Surgical History: Reports: None GI Surgical History: Reports: None Endocrine Surgical History: Reports: None Neurological Surgical History: Reports: None Musculoskeletal Surgical History: Reports: Knee Replacement Other Musculoskeletal Surgeries/Procedures:: left partial knee replacement Oncologic Surgical History: Reports: None Dermatological Surgical History: Reports: None - SUBSTANCE USE Tobacco Use Within Last Twelve Months: Snuff/Dip - HOME MEDS Home Medications: Home Meds Glucosam/Chond/Collagen/Hyalur [Glucosamine Chondroitin] 4 tab PO DAILY 11/24/19 [History] Latanoprost/Pf [Latanoprost 0.005% Eye Drop] 1 drop EYEBOTH DAILY 11/24/19 [History] Multivitamin [Multivitamins] 1 tab PO DAILY 11/24/19 [History] [place]-3 Fatty Acids/Fish Oil [Fish Oil 1,200 mg Softgel] 2 tab PO DAILY 11/24/19 [History] Ascorbic Acid [Vitamin C] 1 tab PO DAILY 10/08/20 [History] Latanoprost/Pf [Latanoprost 0.005% Eye Drop] 1 drop EYEBOTH DAILY 10/08/20 [History] Losartan [Cozaar] 1 tab PO DAILY 10/08/20 [History] Metoprolol Succinate 1 tab PO DAILY 10/08/20 [History] Naproxen Sodium [Aleve] 1 tab PO ASDIRECTED PRN 10/08/20 [History] Phytonadione [Vitamin K] 1 tab PO DAILY 10/08/20 [History] - CURRENT (IN HOUSE) MEDS Current Meds: Current Medications Famotidine (Pepcid) 40 mg IVPUSH ONARRIVE [facility] Famotidine (Pepcid) 40 mg IVPUSH ONARRIVE [facility] Ropivacaine 49.25 ml/Ketorolac Tromethamine 30 mg/Epinephrine HCl 0.5 mg/Clonidine HCl 80 mcg/ Sodium Chloride 75 mls @ 50 mls/sec INJECT ASDIRECTED [facility] Cefazolin Sodium/Dextrose 2 gm (/ Premix) 50 mls @ 100 mls/hr IV ONCALL [facility] Lactated Ringer's (Ringers, Lactated) 1,000 mls @ 100 mls/hr IV ASDIRECTED [facility] Lactated Ringer's (Ringers, Lactated) 1,000 mls @ 100 mls/hr IV ASDIRECTED DK Ropivacaine 49.25 ml/Ketorolac Tromethamine 30 mg/Epinephrine HCl 0.5 mg/Clonidine HCl 80 mcg/ Sodium Chloride 75 mls @ 50 mls/sec INJECT ASDIRECTED [facility] Cefazolin Sodium/Dextrose 2 gm (/ Premix) 50 mls @ 100 mls/hr IV ONCALL [facility] Scopolamine (Transderm-Scop) 1.5 mg TRDERM ONARRIVE [facility] Scopolamine (Transderm-Scop) 1.5 mg TRDERM ONARRIVE [facility] Discontinued Medications Bupivacaine HCl (Marcaine 0.5%) Confirm Administered Dose 30 ml .ROUTE .STK-MED ONE Stop: 10/28/20 09:42 Cefazolin Sodium/Dextrose (Ancef) Confirm Administered Dose 2 gm IV .STK-MED ONE Stop: 10/28/20 09:49 Fentanyl (Sublimaze) Confirm Administered Dose 100 mcg .ROUTE .STK-MED ONE Stop: 10/28/20 09:29 Tranexamic Acid 1,000 mg/ (Sodium Chloride) 110 mls @ 600 mls/hr IV ASDIRECTED ONE Stop: 10/14/20 06:10 Sodium Chloride (Normal Saline) Confirm Administered Dose 20 mls @ as directed .ROUTE .STK-MED ONE Stop: 10/28/20 07:17 Acetaminophen (Ofirmev) Confirm Administered Dose 100 mls @ as directed .ROUTE .STK-MED ONE Stop: 10/28/20 09:34 Lidocaine HCl (Xylocaine-Mpf 1%) Confirm Administered Dose 5 ml .ROUTE .STK-MED ONE Stop: 10/28/20 09:29 Midazolam HCl (Versed 1 Mg/Ml) Confirm Administered Dose 2 mg .ROUTE .STK-MED ONE Stop: 10/28/20 09:29 Propofol (Diprivan 20 Ml) Confirm Administered Dose 200 mg .ROUTE .STK-MED ONE Stop: 10/28/20 09:29 Tranexamic Acid (Cyklokapron) 1,000 mg TOP ASDIRECTED ONE Stop: 10/28/20 06:01 Tranexamic Acid (Cyklokapron) Confirm Administered Dose 1,000 mg .ROUTE .STK-MED ONE Stop: 10/28/20 07:27
[2020-10-28] MEDS ORDERED: Ondansetron 4 MG/2 ML SDV ONE (10:43)
[2020-10-28] MEDS ORDERED: ePHEDrine 50 MG/ML SDV ONE (10:43)
[2020-10-28] MEDS ORDERED: Dexamethasone 4 MG/ML 5 ML MDV ONE (10:43)
--- NOTE | 2020-10-28 11:06 | PCM.SN.2 ---
- Free Text/Narrative Note: 1016: consent signed. single shot right femoral nerve block with nerve stimulator needle done with a sterile technique by Florin Longo and I assisted. right inguinal area prepped with chlorhexidine, and draped. right femoral artery palpated. 1%lidocaine 2 ml for skin infiltration. 4 inch 20 gauge stimuplex needle used and flushed with normal saline. placed in skin-aspiration negative. +patellar motion at 0.6 mA. total 25 ml of 0.5 % Bupivacaine given with 5 ml injection with aspirations x5. All aspirations were negative. There was no pain or paresthesias with the injections. The patient was able to communicate throughout the entire procedure. 10:21: spinal done with a sterile technique, back prepped and draped with chlorhexidine. 1% lidocaine 3ml given for skin infiltration at l3-l4. 22 gauge spinocan needle used. +csf, no heme or paresthesias with injection. T8 level. Patient was able to communicate throughout the entire procedure. T8 level.
[2020-10-28] MEDS ORDERED: 50% Dextrose in Water 50 ML Syringe IVPUSH PRN (11:28)
[2020-10-28] MEDS ORDERED: HYDROmorphone 2 MG/ML Syringe IVPUSH PRN (11:28)
[2020-10-28] MEDS ORDERED: EPINEPHrine 1:10,000 1 MG/10 ML Syringe IVPUSH PRN (11:28)
[2020-10-28] MEDS ORDERED: Atropine 0.1 MG/ML 10 ML Syringe IVPUSH PRN ×2 (11:28)
[2020-10-28] MEDS ORDERED: Albuterol 0.083% 2.5 MG/3 ML Neb Soln NEB PRN (11:28)
[2020-10-28] MEDS ORDERED: Naloxone 0.4 MG/ML Syringe IVPUSH PRN (11:28)
[2020-10-28] MEDS ORDERED: Ondansetron 4 MG/2 ML SDV IVPUSH PRN ×2 (11:28→12:50)
[2020-10-28] MEDS ORDERED: fentaNYL 100 MCG/2 ML SDV IVPUSH PRN (11:28)
--- NOTE | 2020-10-28 12:26 | PCM.OPNOTE ---
- General Post-Op/Procedure Note Date of Surgery/Procedure: 10/28/20 Operative Procedure(s): r tka Findings: right knee tricompartmental grade iv oa Pre Op Diagnosis: right knee oa Post-Op Diagnosis: Same Anesthesia Technique: Combo Spinal/Epidural, Regional Block Primary Surgeon: Josemanuel Gupta Net Ui Developer: Ellen Nichole EBL in mLs: 50 Complications: None Condition: Good
[2020-10-28] MEDS ORDERED: Labetalol 100 MG/20 ML MDV ONE (12:38)
[2020-10-28] MEDS ORDERED: diphenhydrAMINE 25 MG Cap PO PRN (12:50)
[2020-10-28] MEDS ORDERED: traMADol 50 MG Tab PO PRN (12:50)
[2020-10-28] MEDS ORDERED: Docusate Sodium 100 MG Cap PO PRN (12:50)
[2020-10-28] MEDS ORDERED: Bisacodyl 10 MG Supp RECTAL PRN (12:50)
[2020-10-28] MEDS ORDERED: Acetaminophen/oxyCODONE 325-5 MG Tab PO PRN (12:50)
[2020-10-28] MEDS ORDERED: Sodium Chloride 0.9% 10 ML Syringe FLUSH PRN (12:50)
[2020-10-28] MEDS ORDERED: Aluminum Hydroxide/Magnesium Hydroxide/Simethicone Susp 30 ML Cup PO PRN (12:50)
[2020-10-28] MEDS ORDERED: Sodium Chloride 0.9% 2.5 ML Syringe FLUSH PRN (12:50)
[2020-10-28] MEDS ORDERED: Morphine 2 MG/ML SYRINGE IVPUSH PRN (12:50)
--- NOTE | 2020-10-28 13:17 | PCM.POSTAN ---
POST ANESTHESIA ASSESSMENT - MENTAL STATUS Mental Status: Alert, Oriented - VITAL SIGNS Vital Signs: Last Vital Signs Temp 97.7 F 10/28/20 12:44 Pulse 72 10/28/20 13:09 Resp 12 10/28/20 13:09 BP 125/65 10/28/20 13:09 Pulse Ox 95 10/28/20 13:09 - RESPIRATORY Respiratory Status: Respiratory Rate WNL, Airway Patent, O2 Saturation Stable - CARDIOVASCULAR CV Status: Pulse Rate WNL, Blood Pressure Stable - GASTROINTESTINAL GI Status: No Symptoms - POST OP HYDRATION Hydration Status: Adequate & Stable
--- NOTE | 2020-10-28 13:57 | CR ---
Indication: Right knee arthroplasty Technique: Two views of the right knee were acquired Comparison: A preoperative study of September 17, 2020 Findings: There are findings of a right knee arthroplasty. Impression: Expected immediate postoperative appearance of the right knee status post arthroplasty. No unexpected findings. Dictated by Irwin Torres MD @ Oct 28 2020 1:55PM Signed by Dr. Irwin Torres @ Oct 28 2020 1:56PM
[2020-10-28] MEDS: Ketorolac 15 MG/ML SDV IVPUSH SCH ×2 (14:08→18:24)
[2020-10-28 15:08] LABS: BLOOD UREA NITROGEN,BUN 14 mg/dL (7.0-18.0); CARBON DIOXIDE,CO2 25.9 mmol/L (21.0-32.0); CHLORIDE,CL 105 mmol/L (98-107); GLUCOSE RANDOM 124 mg/dL (74-106); POTASSIUM,K 4.3 mmol/L (3.5-5.1); SODIUM,NA 138 mmol/L (136-148)
--- NOTE | 2020-10-28 15:14 | OR ---
SURGEON: Josemanuel Gupta DATE OF PROCEDURE: 10/28/2020 PREOPERATIVE DIAGNOSIS: Right knee tricompartmental osteoarthritis. POSTOPERATIVE DIAGNOSIS: Right knee tricompartmental osteoarthritis. PROCEDURE: Right knee total knee arthroplasty. PRIMARY SURGEON: Josemanuel Gupta DO COLLAR BASTER JUMPBASTING: KELLEY Ziegler ROLE OF COLLAR BASTER JUMPBASTING: Nurse practitioner, KELLEY Ziegler, played an essential role in assisting in this case, helping to position the patient, retract structures as needed, as well as suturing and cutting sutures as indicated. Her presence improved patient's safety and decreased operative time. ANESTHESIA: Spinal plus regional femoral block. FLUID: Lactated Ringer's solution. ESTIMATED BLOOD LOSS: 50 mL. COMPLICATIONS: None. SPECIMEN: None. DISCHARGE DISPOSITION: Stable to PACU. INSTRUMENTATION: Rolla Triathlon knee, size 6 femur, size 6 tibia, 9 mm polyethylene insert, and 35 mm domed medialized patella which was polyethylene. HISTORY AND INDICATIONS FOR THE PROCEDURE: The patient is well known to me. We had previously performed a left medial partial knee arthroplasty on him. Risks and goals of the procedure were explained to the patient. Preoperative imaging confirmed the above-mentioned diagnosis. Informed consent was obtained. DETAILS OF PROCEDURE: The patient was seen preoperatively by myself and the Anesthesia staff in the preoperative holding area where the operative site was marked. He was brought to the operative suite by Anesthesia staff where spinal was performed plus regional block. All extremities were found to be well padded. A sterile Pickett catheter was placed. A well-padded tourniquet was placed on the right thigh. The right lower extremity was then prepped and draped in a sterile manner. Time- out was called identifying the correct patient, the correct procedure, the correct site, and that antibiotics had been given within appropriate period of time. The right lower extremity was exsanguinated. Tourniquet was raised to 250 mmHg and taken down at 64 minutes. A midline incision was made from approximately 3- 1/2 fingerbreadths proximal to the patella down to the level of the distal tibial tubercle. Bleeding was controlled with Bovie electrocautery. The medial proximal tibia was then visualized with Bovie electrocautery. A full synovectomy was performed using Bovie electrocautery and Kochers. We then everted the patella and then flexed the knee up and it was held with a towel clip and rongeurs. I then made two 90-degree cuts on the patella and then placed my 35 mm guide, drilled three holes, and then placed the patellar trial button. I then reamed the distal femur and then inserted my intramedullary guide at 5-degree valgus, pinned this in place, removed the intramedullary portion of the guide, and then made my distal femoral cut. I protected the medial and lateral collateral ligaments during this part and the remainder of the procedure with two sharp Hohmanns. I then flexed the knee up and used my posterior condylar guide, which measured a size 6. I then drilled the two holes for the guide and then placed my chamfer block. I then made my anterior, posterior, and chamfer cuts and then removed any extra bone. I then placed my trimming department blocker on the tibia and pinned this in place and then used a reciprocating saw to take out my notch and then removed that bone with the use of Tasha and electrocautery. I then placed Hohmanns medial and laterally and then used a forked retractor on the posterior tibia to anteriorize it. I then placed my extramedullary guide in line with the tibial tubercle, tibial spine, and then the second metatarsal. I fixed this in place and then pinned the guide. I then removed the large portion of the guide, and then protecting my collaterals in posterior knee, I then made my proximal tibia cut. I did use a 2 mm stylus guide to make sure my depth was correct. This was done on the medial side. After this had been accomplished, I then removed my pins and the Hohmanns and then I used a lamina pedodontist medially and laterally and removed posterior osteophytes. I took an extended amount of time to remove my lateral posterior osteophyte as it was very large and was attached to the tissue, so I took a great deal of time to make sure that we stayed right on bone with the Bovie electrocautery unit as to not damage any of the soft tissues. After the menisci had then been removed posteriorly as well, I then used my Hohmanns and anteriorized the tibia again and then placed my base plate, reamed and tamped, and then pinned my tibial insert and then followed by the femur. This provided good range of motion and stability. I then removed all my components, copiously irrigated with saline, and then dried this using a lap and then cemented my components in place. The knee was held in just slightly internal rotation with full extension. While this dried, I applied TXA to the knee and laps and then took down my tourniquet at 64 minutes. After the cement dried, I then removed any extra cement. I removed my tibial trial insert and examined the posterior portion of the knee that did not have any extra cement visible. We then copiously irrigated again with saline and then inserted my final tibial polyethylene insert. This provided good range of motion and stability. We then irrigated again with Betadine-infused irrigation and then closed the parapatellar arthrotomy with two #5 Ethibond sutures. My assist then closed the parapatellar arthrotomy in a watertight manner with 0 Stratafix, followed by subcutaneous closed with #1 Stratafix, followed by skin lara, followed by Betadine-soaked Adaptic and a sterile dressing. The patient was then allowed to awaken from conscious sedation and taken to the PACU in stable condition. [id number] / MODL /[id number]
[2020-10-28 16:13] LABS: HEMOGLOBIN A1C 5.7 %
--- NOTE | 2020-10-28 16:22 | PCM.CONS ---
H&P History of Present Illness - General Date of Service: 10/28/20 Admit Problem/Dx: Admission Diagnosis/Problem Admission Diagnosis/Problem Knee pain Source of Information: Patient History Limitations: Reports: No Limitations - History of Present Illness Initial Comments - Free Text/Narative: This 65-year-old male with past medical history of hypertension and previous left total knee presented today for right total knee with Dr. Gupta. Hospitalist service was consulted for medical management of hypertension. Salo reports he was recently diagnosed with hypertension and started on metoprolol and losartan. He reports he has been doing well at home. Denies any chest pain shortness of breath. Does report mild leg swelling intermittently. Denies any leg pain. Denies any recent fevers chills sinus congestion or neck pain. No abdominal pain he is urinating well. He has recently returned to [facility] floor from PACU. Reports knee pain is tolerable. He reports no other concerns or questions at this time. He reports he chews tobacco no tobacco smoking. No recreational drug use and no alcohol use. He denies any history of CAD or DM type II. Unsure if recent lab studies have been done to evaluate for HLD or diabetes. Upon review of chart and [facility], does not reveal any recent laboratory studies including TSH A1c or lipid panel. - Related Data Allergies/Adverse Reactions: Allergies Allergy/AdvReac Type Severity Reaction Status Date / Time No Known Allergies Allergy Verified 10/28/20 10:30 Home Medications: Home Meds Glucosam/Chond/Collagen/Hyalur [Glucosamine Chondroitin] 4 tab PO DAILY 11/24/19 [History] Multivitamin [Multivitamins] 1 tab PO DAILY 11/24/19 [History] [place]-3 Fatty Acids/Fish Oil [Fish Oil 1,200 mg Softgel] 2 tab PO DAILY 11/24/19 [History] Ascorbic Acid [Vitamin C] 1 tab PO DAILY 10/08/20 [History] Latanoprost/Pf [Latanoprost 0.005% Eye Drop] 1 drop EYEBOTH DAILY 10/08/20 [History] Losartan [Cozaar] 1 tab PO DAILY 10/08/20 [History] Metoprolol Succinate 1 tab PO DAILY 10/08/20 [History] Naproxen Sodium [Aleve] 1 tab PO ASDIRECTED PRN 10/08/20 [History] Phytonadione [Vitamin K] 1 tab PO DAILY 10/08/20 [History] Past Medical History HEENT History: Reports: Glaucoma, Impaired Vision Other HEENT History: wears glasses, top denture, bottom partial Cardiovascular History: Reports: Hypertension Respiratory History: Reports: None Gastrointestinal History: Reports: None Genitourinary History: Reports: Renal Calculus Musculoskeletal History: Reports: Arthritis, Fracture Other Musculoskeletal History: fractured right arm Neurological History: Reports: None Psychiatric History: Reports: None Endocrine/Metabolic History: Reports: Obesity/BMI 30+ Hematologic History: Reports: None Immunologic History: Reports: None Oncologic (Cancer) History: Reports: None Dermatologic History: Reports: None - Infectious Disease History Infectious Disease History: Reports: None - Past Surgical History Head Surgeries/Procedures: Reports: None HEENT Surgical History: Reports: Tonsillectomy Cardiovascular Surgical History: Reports: None Respiratory Surgical History: Reports: None GI Surgical History: Reports: None Endocrine Surgical History: Reports: None Neurological Surgical History: Reports: None Musculoskeletal Surgical History: Reports: Knee Replacement Other Musculoskeletal Surgeries/Procedures:: left partial knee replacement Oncologic Surgical History: Reports: None Dermatological Surgical History: Reports: None Social & Family History - Family History Family Medical History: No Pertinent Family History - Tobacco Use Years of Tobacco use: 55 - Recreational Drug Use Drug Use in Last 12 Months: No H&P Review of Systems - Review of Systems: Review Of Systems: See Below General: Reports: No Symptoms. Denies: Fever, Chills, Malaise Pulmonary: Reports: No Symptoms. Denies: Shortness of Breath, Pleuritic Chest Pain, Cough Cardiovascular: Reports: No Symptoms. Denies: Chest Pain Gastrointestinal: Reports: No Symptoms. Denies: Abdominal Pain Genitourinary: Reports: No Symptoms. Denies: Dysuria, Frequency Musculoskeletal: Reports: Joint Pain (Right knee) Skin: Reports: No Symptoms Psychiatric: Reports: No Symptoms Neurological: Reports: No Symptoms Hematologic/Lymphatic: Reports: No Symptoms Immunologic: Reports: No Symptoms Exam - Exam Exam: See Below - Vital Signs Vital Signs: Last Vital Signs Temp 97.7 F 10/28/20 12:44 Pulse 60 10/28/20 13:24 Resp 17 10/28/20 13:24 BP 122/62 10/28/20 13:24 Pulse Ox 93 L 10/28/20 13:24 Weight: 104.326 kg - Exam Quality Assessment: No: Supplemental Oxygen General: Alert, Oriented, Cooperative Lungs: Clear to Auscultation, Normal Respiratory Effort Cardiovascular: Regular Rate, Regular Rhythm GI/Abdominal Exam: Normal Bowel Sounds, Soft, Non-Tender Extremities: Normal Inspection, Normal Range of Motion, Non-Tender, Pedal Edema (+1 nonpitting edema bilaterally) Skin: Incision (Right knee with Adalid wrap and polar ice intact no drainage noted.) Neuro Extensive - Mental Status: Alert, Oriented x3 Neuro Extensive - Motor, Sensory, Reflexes: CN II-XII Intact Psychiatric: Alert, Normal Affect, Normal Mood - Patient Data Lab Results Last 24 hrs: Laboratory Results - last 24 hr 10/28/20 10/28/20 10/28/20 Range/Units 08:09 09:43 14:33 WBC 14.61 H (4.0-11.0) K/uL RBC 4.58 (4.50-5.90) M/uL Hgb 13.7 (13.0-17.0) g/dL Hct 42.0 (38.0-50.0) % MCV 91.7 (80.0-98.0) fL MCH 29.9 (27.0-32.0) pg MCHC 32.6 (31.0-37.0) g/dL RDW Std Deviation 48.7 (28.0-62.0) fl RDW Coeff of Melissa 15 (11.0-15.0) % Plt Count 232 (150-400) K/uL MPV 9.60 (7.40-12.00) fL Neut % (Auto) 94.2 H (48.0-80.0) % Lymph % (Auto) 4.4 L (16.0-40.0) % Mitchell % (Auto) 1.3 (0.0-15.0) % Eos % (Auto) 0.0 (0.0-7.0) % Baso % (Auto) 0.1 (0.0-1.5) % Neut # (Auto) 13.8 H (1.4-5.7) K/uL Lymph # (Auto) 0.6 (0.6-2.4) K/uL Mitchell # (Auto) 0.2 (0.0-0.8) K/uL Eos # (Auto) 0.0 (0.0-0.7) K/uL Baso # (Auto) 0.0 (0.0-0.1) K/uL Nucleated RBC % 0.0 /100WBC Nucleated RBCs # 0 K/uL Sodium (136-148) mmol/L Potassium (3.5-5.1) mmol/L Chloride (98-107) mmol/L Carbon Dioxide (21.0-32.0) mmol/L BUN (7.0-18.0) mg/dL Creatinine (0.8-1.3) mg/dL Est Cr Clr Drug Dosing mL/min Estimated GFR (MDRD) ml/min Glucose (74-106) mg/dL Hemoglobin A1c (4.5 - 6.2) % Calcium (8.5-10.1) mg/dL Magnesium (1.8-2.4) mg/dL SARS-CoV-2 RNA ([place]) NEGATIVE (NEGATIVE) Blood Type A POSITIVE Antibody Screen NEGATIVE 10/28/20 10/28/20 Range/Units 14:33 14:33 WBC (4.0-11.0) K/uL RBC (4.50-5.90) M/uL Hgb (13.0-17.0) g/dL Hct (38.0-50.0) % MCV (80.0-98.0) fL MCH (27.0-32.0) pg MCHC (31.0-37.0) g/dL RDW Std Deviation (28.0-62.0) fl RDW Coeff of Melissa (11.0-15.0) % Plt Count (150-400) K/uL MPV (7.40-12.00) fL Neut % (Auto) (48.0-80.0) % Lymph % (Auto) (16.0-40.0) % Mitchell % (Auto) (0.0-15.0) % Eos % (Auto) (0.0-7.0) % Baso % (Auto) (0.0-1.5) % Neut # (Auto) (1.4-5.7) K/uL Lymph # (Auto) (0.6-2.4) K/uL Mitchell # (Auto) (0.0-0.8) K/uL Eos # (Auto) (0.0-0.7) K/uL Baso # (Auto) (0.0-0.1) K/uL Nucleated RBC % /100WBC Nucleated RBCs # K/uL Sodium 138 (136-148) mmol/L Potassium 4.3 (3.5-5.1) mmol/L Chloride 105 (98-107) mmol/L Carbon Dioxide 25.9 (21.0-32.0) mmol/L BUN 14 (7.0-18.0) mg/dL Creatinine 1.0 (0.8-1.3) mg/dL Est Cr Clr Drug Dosing 72.66 mL/min Estimated GFR (MDRD) > 60.0 ml/min Glucose 124 H (74-106) mg/dL Hemoglobin A1c 5.7 (4.5 - 6.2) % Calcium 8.4 L (8.5-10.1) mg/dL Magnesium 2.0 (1.8-2.4) mg/dL SARS-CoV-2 RNA ([place]) (NEGATIVE) Blood Type Antibody Screen Result Diagrams: 10/28/20 14:33 10/28/20 14:33 Sepsis Event Note - Focused Exam Vital Signs: Vital Signs Temp Pulse Resp BP Pulse Ox 10/28/20 13:24 60 17 122/62 93 L 10/28/20 13:19 63 13 114/58 L 95 10/28/20 13:14 61 15 115/64 96 10/28/20 13:09 72 12 125/65 95 10/28/20 13:04 66 13 116/60 89 L 10/28/20 12:59 66 15 121/58 L 95 10/28/20 12:55 70 22 H 124/77 98 10/28/20 12:52 70 14 133/69 98 10/28/20 12:44 97.7 F 79 16 120/66 97 10/28/20 09:30 97.3 F 58 L 16 151/80 H 96 Consult PN Assessment/Plan POD#: 0 Procedures: Procedures SARS-COV-2 COVID-19 AMP PRB (10/10/20) THERAPEUTIC EXERCISES (01/11/20) TTE W/DOPPLER COMPLETE (10/11/20) VASOPNEUMATIC DEVICE THERAPY (01/11/20) X-RAY EXAM KNEE 4 OR MORE (09/17/20) X-RAY EXAM OF KNEE 1 OR 2 (02/20/20) X-RAY EXAM OF KNEE 3 (12/21/19) (1) S/P total knee arthroplasty SNOMED Code(s): 1741878097055, 448741242, 8560548331450 Code(s): Z96.659 - PRESENCE OF UNSPECIFIED ARTIFICIAL KNEE JOINT Current Visit: Yes (2) Hypertension SNOMED Code(s): 69192666 Code(s): I10 - ESSENTIAL (PRIMARY) HYPERTENSION Current Visit: Yes (3) Obesity SNOMED Code(s): 527708864, 654568974 Code(s): E66.9 - OBESITY, UNSPECIFIED Current Visit: Yes Problem List Initiated/Reviewed/Updated: Yes My Orders Last 24 Hours: My Active Orders 10/28/20 14:33 LIPID PANEL [CHEM] Routine TSH [CHEM] Routine Plan: This 65-year-old male admitted with right TKA Dr. Gupta. Hospitalist service consulted for medical management of hypertension 1. Right TKA -Orders per orthopedics -Encouraged incentive spirometer 2. Hypertension -BMP within normal limits magnesium 2.0 -Continue metoprolol and losartan -Monitor blood pressures -Has not had lab work for HLD or diabetes we will add lipid panel A1c and TSH encourage follow-up with PCP as outpatient. VTE prophylaxis: ASA per orthopedics CODE STATUS: Full code
[2020-10-28] MEDS: ceFAZolin 2 GM in Premix Bag 1 BAG IV SCH (18:25)
[2020-10-28] MEDS ORDERED: LATANOPROST EYEBOTH SCH (21:00)
[2020-10-29] MEDS: Ketorolac 15 MG/ML SDV IVPUSH SCH (00:55)
[2020-10-29] MEDS: ceFAZolin 2 GM in Premix Bag 1 BAG IV SCH (02:54)
[2020-10-29 06:38] LABS: BLOOD UREA NITROGEN,BUN 20 mg/dL (7.0-18.0); CARBON DIOXIDE,CO2 26.9 mmol/L (21.0-32.0); CHLORIDE,CL 108 mmol/L (98-107); GLUCOSE RANDOM 127 mg/dL (74-106); POTASSIUM,K 4.1 mmol/L (3.5-5.1); SODIUM,NA 142 mmol/L (136-148)
--- NOTE | 2020-10-29 08:43 | PCM.DCSUM1 ---
Discharge Summary - Hospital Course Free Text/Narrative:: Admitting Diagnosis : OA right knee Other Medical Diagnosis : HTN Discharge Medical Diagnosis : 1) s/p right TKA 2) post-surgical anemia 3) HTN Salo underwent Right TKA 10/28/[address] Josemanuel Gupta. Admitted to Med/Surg overnight for post-op care and PT. POD#1, he is doing very well. VSS/afebrile Tolerating food/fluids without N/V. watt cath was removed, voiding. Had been up ambulating with staff last evening. Pain is minimal, controlled with IV Toradol and one dose of Percocet overnight. He requests only a few pain medications to be prescribed. Using polar care ice. Surgical dressings CDI. This was removed. Surgical dressing well approximated with lara. Minimal soft tissue swelling. Small amount of bloody drainage distal portion of incision. No surrounding erythema. Sensation intact to LE. 2 additional prophylactic doses of Ancef 2gm administered after surgery Will start ASA 325mg today for VTE prophylaxis. Other DVT prophylaxis interventions : Bilateral SCDs and early ambulation. Hg POD#1 11.8 Salo is ready to be discharged home. He will be seen by PT this morning. He has a walker. Hospitalist services were utilized d/t his newly diagnosed HTN. Discharge Orders : Follow up appt is scheduled for 3 weeks at ortho clinic. Outpatient PT is scheduled to start tomorrow. He already has a walker. He will be discharged home today. Lives at home with his . - Discharge Data Discharge Date: 10/29/20 Discharge Disposition: Home, Self-Care 01 Condition: Good - Referral to Home Health Primary Care Physician: Radha Shah MD - Patient Summary/Data Operative Procedure(s) Performed: r tka Consults: Consultations 10/28/20 12:50 PT Evaluation and Treatment [CONS] Routine 10/28/20 13:04 Consult to Physician [CONS] Routine - Patient Instructions Diet: Heart Healthy Diet Activity: Apply Ice (When using PolarCare ice, be sure to have something between the pad and your skin), Elevate Extremity (when elevating, place pillow under your heel. Please do not place pillow under your knee), Full Weight Bearing (use walker when ambulating), No Strenuous Activities Driving: Do Not Drive (no driving for 6 weeks) Showering/Bathing: May Shower (you do not need to cover AquaCell bandage when showering. ), No Tub Bathing/Swimming Notify Provider of: Fever, Increased Pain, Swelling and Redness Other/Special Instructions: Refer to "Knee Notebook" for additional questions or concerns. Physical Therapy scheduled to start 10/30/20. Wear compression stockings daily (apply in the morning, remove at bedtime). Call orthopedic clinic if any acute concerns or questions. - Discharge Plan Prescriptions/Med Rec: Aspirin 325 mg PO DAILY #45 tablet Celecoxib [CeleBREX] 200 mg PO DAILY #30 cap Acetaminophen/oxyCODONE [Percocet 325-5 MG] 1 - 2 tab PO Q6HR PRN #12 tablet PRN Reason: Pain Home Medications: Home Meds Glucosam/Chond/Collagen/Hyalur [Glucosamine Chondroitin] 4 tab PO DAILY 11/24/19 [History] Multivitamin [Multivitamins] 1 tab PO DAILY 11/24/19 [History] [place]-3 Fatty Acids/Fish Oil [Fish Oil 1,200 mg Softgel] 2 tab PO DAILY 11/24/19 [History] Ascorbic Acid [Vitamin C] 1 tab PO DAILY 10/08/20 [History] Latanoprost/Pf [Latanoprost 0.005% Eye Drop] 1 drop EYEBOTH DAILY 10/08/20 [History] Losartan [Cozaar] 1 tab PO DAILY 10/08/20 [History] Metoprolol Succinate 1 tab PO DAILY 10/08/20 [History] Phytonadione [Vitamin K] 1 tab PO DAILY 10/08/20 [History] Acetaminophen/oxyCODONE [Percocet 325-5 MG] 1 - 2 tab PO Q6HR PRN #12 tablet 10/29/20 [Rx] Aspirin 325 mg PO DAILY #45 tablet 10/29/20 [Rx] Celecoxib [CeleBREX] 200 mg PO DAILY #30 cap 10/29/20 [Rx] Docusate Sodium [Colace] 100 mg PO BID PRN cap 10/29/20 [Rx] polyethylene glycoL 3350 [MiraLAX] 17 gm PO DAILY PRN packet 10/29/20 [Rx] Patient Handouts: Total Knee Replacement, Care After, [id number], Total Knee Replacement, [id number] Referrals: Ellen Nicohle NP [Nurse Practitioner] - 11/19/20 10:00 am (Please arrive 15 minute early wearing a facemask and bring insurance and photo ID.) Radha Shah MD [Primary Care Provider] - - Discharge Summary/Plan Comment DC Time >30 min.: No - General Info Date of Service: 10/29/20 (814) Admission Dx/Problem (Free Text: Admission Diagnosis/Problem Admission Diagnosis/Problem Knee pain s/p Right TKA Functional Status: Reports: Pain Controlled, Tolerating Diet, Ambulating, Urinating - Review of Systems General: Denies: Fever Pulmonary: Denies: No Symptoms Cardiovascular: Denies: No Symptoms Gastrointestinal: Reports: No Symptoms. Denies: Nausea, Vomiting Musculoskeletal: Reports: Joint Pain (see 'summary') Neurological: Reports: No Symptoms Psychiatric: Reports: No Symptoms - Patient Data Vitals - Most Recent: Last Vital Signs Temp 36.9 C 10/29/20 07:19 Pulse 95 10/29/20 07:19 Resp 20 10/29/20 07:19 BP 107/60 10/29/20 07:19 Pulse Ox 92 L 10/29/20 07:19 Weight - Most Recent: 104.326 kg I&O - Last 24 hours: Intake & Output 10/28/20 10/29/20 10/29/20 22:59 06:59 14:59 Intake Total 200 1050 Output Total 680 475 Balance -480 575 Lab Results - Last 24 hrs: Laboratory Results - last 24 hr 10/28/20 10/28/20 10/28/20 Range/Units 08:09 09:43 14:33 WBC 14.61 H (4.0-11.0) K/uL RBC 4.58 (4.50-5.90) M/uL Hgb 13.7 (13.0-17.0) g/dL Hct 42.0 (38.0-50.0) % MCV 91.7 (80.0-98.0) fL MCH 29.9 (27.0-32.0) pg MCHC 32.6 (31.0-37.0) g/dL RDW Std Deviation 48.7 (28.0-62.0) fl RDW Coeff of Melissa 15 (11.0-15.0) % Plt Count 232 (150-400) K/uL MPV 9.60 (7.40-12.00) fL Neut % (Auto) 94.2 H (48.0-80.0) % Lymph % (Auto) 4.4 L (16.0-40.0) % Schleicher % (Auto) 1.3 (0.0-15.0) % Eos % (Auto) 0.0 (0.0-7.0) % Baso % (Auto) 0.1 (0.0-1.5) % Neut # (Auto) 13.8 H (1.4-5.7) K/uL Lymph # (Auto) 0.6 (0.6-2.4) K/uL Schleicher # (Auto) 0.2 (0.0-0.8) K/uL Eos # (Auto) 0.0 (0.0-0.7) K/uL Baso # (Auto) 0.0 (0.0-0.1) K/uL Nucleated RBC % 0.0 /100WBC Nucleated RBCs # 0 K/uL Sodium (136-148) mmol/L Potassium (3.5-5.1) mmol/L Chloride (98-107) mmol/L Carbon Dioxide (21.0-32.0) mmol/L BUN (7.0-18.0) mg/dL Creatinine (0.8-1.3) mg/dL Est Cr Clr Drug Dosing mL/min Estimated GFR (MDRD) ml/min Glucose (74-106) mg/dL Hemoglobin A1c (4.5 - 6.2) % Calcium (8.5-10.1) mg/dL Magnesium (1.8-2.4) mg/dL Triglycerides (0-200) mg/dL Cholesterol (50-200) mg/dL LDL Cholesterol, Calc (60-180) mg/dL VLDL Cholesterol (5-55) mg/dL HDL Cholesterol (40-60) mg/dL Cholesterol/HDL Ratio (3.3-6.0) TSH 3rd Generation (0.36-3.74) uIU/mL SARS-CoV-2 RNA ([facility]) NEGATIVE (NEGATIVE) Blood Type A POSITIVE Antibody Screen NEGATIVE 10/28/20 10/28/20 10/28/20 Range/Units 14:33 14:33 14:33 WBC (4.0-11.0) K/uL RBC (4.50-5.90) M/uL Hgb (13.0-17.0) g/dL Hct (38.0-50.0) % MCV (80.0-98.0) fL MCH (27.0-32.0) pg MCHC (31.0-37.0) g/dL RDW Std Deviation (28.0-62.0) fl RDW Coeff of Melissa (11.0-15.0) % Plt Count (150-400) K/uL MPV (7.40-12.00) fL Neut % (Auto) (48.0-80.0) % Lymph % (Auto) (16.0-40.0) % Schleicher % (Auto) (0.0-15.0) % Eos % (Auto) (0.0-7.0) % Baso % (Auto) (0.0-1.5) % Neut # (Auto) (1.4-5.7) K/uL Lymph # (Auto) (0.6-2.4) K/uL Schleicher # (Auto) (0.0-0.8) K/uL Eos # (Auto) (0.0-0.7) K/uL Baso # (Auto) (0.0-0.1) K/uL Nucleated RBC % /100WBC Nucleated RBCs # K/uL Sodium 138 (136-148) mmol/L Potassium 4.3 (3.5-5.1) mmol/L Chloride 105 (98-107) mmol/L Carbon Dioxide 25.9 (21.0-32.0) mmol/L BUN 14 (7.0-18.0) mg/dL Creatinine 1.0 (0.8-1.3) mg/dL Est Cr Clr Drug Dosing 72.66 mL/min Estimated GFR (MDRD) > 60.0 ml/min Glucose 124 H (74-106) mg/dL Hemoglobin A1c 5.7 (4.5 - 6.2) % Calcium 8.4 L (8.5-10.1) mg/dL Magnesium 2.0 (1.8-2.4) mg/dL Triglycerides 73 (0-200) mg/dL Cholesterol 199 (50-200) mg/dL LDL Cholesterol, Calc 140 (60-180) mg/dL VLDL Cholesterol 14 (5-55) mg/dL HDL Cholesterol 44 (40-60) mg/dL Cholesterol/HDL Ratio 4.5 (3.3-6.0) TSH 3rd Generation 0.78 (0.36-3.74) uIU/mL SARS-CoV-2 RNA ([facility]) (NEGATIVE) Blood Type Antibody Screen 10/29/20 10/29/20 Range/Units 05:30 05:30 WBC (4.0-11.0) K/uL RBC (4.50-5.90) M/uL Hgb 11.8 L (13.0-17.0) g/dL Hct 36.3 L (38.0-50.0) % MCV (80.0-98.0) fL MCH (27.0-32.0) pg MCHC (31.0-37.0) g/dL RDW Std Deviation (28.0-62.0) fl RDW Coeff of Melissa (11.0-15.0) % Plt Count (150-400) K/uL MPV (7.40-12.00) fL Neut % (Auto) (48.0-80.0) % Lymph % (Auto) (16.0-40.0) % Schleicher % (Auto) (0.0-15.0) % Eos % (Auto) (0.0-7.0) % Baso % (Auto) (0.0-1.5) % Neut # (Auto) (1.4-5.7) K/uL Lymph # (Auto) (0.6-2.4) K/uL Schleicher # (Auto) (0.0-0.8) K/uL Eos # (Auto) (0.0-0.7) K/uL Baso # (Auto) (0.0-0.1) K/uL Nucleated RBC % /100WBC Nucleated RBCs # K/uL Sodium 142 (136-148) mmol/L Potassium 4.1 (3.5-5.1) mmol/L Chloride 108 H (98-107) mmol/L Carbon Dioxide 26.9 (21.0-32.0) mmol/L BUN 20 H (7.0-18.0) mg/dL Creatinine 1.2 (0.8-1.3) mg/dL Est Cr Clr Drug Dosing 60.55 mL/min Estimated GFR (MDRD) > 60.0 ml/min Glucose 127 H (74-106) mg/dL Hemoglobin A1c (4.5 - 6.2) % Calcium 8.2 L (8.5-10.1) mg/dL Magnesium 2.2 (1.8-2.4) mg/dL Triglycerides (0-200) mg/dL Cholesterol (50-200) mg/dL LDL Cholesterol, Calc (60-180) mg/dL VLDL Cholesterol (5-55) mg/dL HDL Cholesterol (40-60) mg/dL Cholesterol/HDL Ratio (3.3-6.0) TSH 3rd Generation (0.36-3.74) uIU/mL SARS-CoV-2 RNA ([facility]) (NEGATIVE) Blood Type Antibody Screen Med Orders - Current: Current Medications Al Hydroxide/Mg Hydroxide (Mag-Al Plus) 30 ml PO Q4H PRN PRN Reason: Indigestion Aspirin (Aspirin) 325 mg PO DAILY [facility] Bisacodyl (Dulcolax) 10 mg RECTAL DAILY PRN PRN Reason: Constipation Celecoxib (Celebrex) 200 mg PO DAILY [facility] Diphenhydramine HCl (Benadryl) 25 - 50 mg PO Q6H PRN PRN Reason: Itching Docusate Sodium (Colace) 100 mg PO BID PRN PRN Reason: Constipation Famotidine (Pepcid) 40 mg IVPUSH ONARRIVE [facility] Last Admin: 10/28/20 10:00 Dose: 40 mg Documented by: Famotidine (Pepcid) 40 mg IVPUSH ONARRIVE [facility] Famotidine (Pepcid) 40 mg PO DAILY [facility] Ropivacaine 49.25 ml/Ketorolac Tromethamine 30 mg/Epinephrine HCl 0.5 mg/Clonidine HCl 80 mcg/ Sodium Chloride 75 mls @ 50 mls/sec INJECT ASDIRECTED [facility] Cefazolin Sodium/Dextrose 2 gm (/ Premix) 50 mls @ 100 mls/hr IV ONCALL [facility] Lactated Ringer's (Ringers, Lactated) 1,000 mls @ 100 mls/hr IV ASDIRECTED [facility] Last Admin: 10/28/20 09:55 Dose: 100 mls/hr Documented by: Lactated Ringer's (Ringers, Lactated) 1,000 mls @ 100 mls/hr IV ASDIRECTED [facility] Last Admin: 10/28/20 14:10 Dose: 100 mls/hr Documented by: Ropivacaine 49.25 ml/Ketorolac Tromethamine 30 mg/Epinephrine HCl 0.5 mg/Clonidine HCl 80 mcg/ Sodium Chloride 75 mls @ 50 mls/sec INJECT ASDIRECTED [facility] Cefazolin Sodium/Dextrose 2 gm (/ Premix) 50 mls @ 100 mls/hr IV ONCALL [facility] Losartan Potassium (Cozaar) 100 mg PO DAILY [facility] Metoprolol Succinate (Toprol Xl) 25 mg PO DAILY [facility] Morphine Sulfate (Morphine) 1 - 2 mg IVPUSH Q3H PRN PRN Reason: Pain Ondansetron HCl (Zofran) 4 mg IVPUSH Q6H PRN PRN Reason: Nausea/Vomiting Oxycodone/Acetaminophen (Percocet 325-5 Mg) 1 - 2 tab PO Q4H PRN PRN Reason: Pain Last Admin: 10/29/20 00:09 Dose: 2 tab Documented by: Patient Own Medication (Ptom) 1 each EYEBOTH DAILY [facility] Polyethylene Glycol (Miralax) 17 gm PO DAILY [facility] Scopolamine (Transderm-Scop) 1.5 mg TRDERM ONARRIVE [facility] Last Admin: 10/28/20 09:45 Dose: 1.5 mg Documented by: Scopolamine (Transderm-Scop) 1.5 mg TRDERM ONARRIVE [facility] Sodium Chloride (Saline Flush) 10 ml FLUSH ASDIRECTED PRN PRN Reason: Keep Vein Open Sodium Chloride (Saline Flush) 2.5 ml FLUSH ASDIRECTED PRN PRN Reason: Keep Vein Open Tramadol HCl (Ultram) 50 - 100 mg PO Q6H PRN PRN Reason: Pain Discontinued Medications Albuterol (Proventil Neb Soln) 2.5 mg NEB ONETIME PRN PRN Reason: Wheezing Atropine Sulfate (Atropine 0.1 Mg/Ml) 0.5 mg IVPUSH ASDIRECTED PRN PRN Reason: Hypo-perfusion Atropine Sulfate (Atropine 0.1 Mg/Ml) 1 mg IVPUSH ASDIRECTED PRN PRN Reason: Hypo-Perfusion Bupivacaine HCl (Marcaine 0.5%) Confirm Administered Dose 30 ml .ROUTE .STK-MED ONE Stop: 10/28/20 09:42 Cefazolin Sodium/Dextrose (Ancef) Confirm Administered Dose 2 gm IV .STK-MED ONE Stop: 10/28/20 09:49 Dexamethasone (Dexamethasone) Confirm Administered Dose 20 mg .ROUTE .STK-MED ONE Stop: 10/28/20 10:44 Dextrose/Water (Dextrose 50% In Water) 50 ml IVPUSH ASDIRECTED PRN PRN Reason: Hypoglycemia Ephedrine Sulfate (Ephedrine Sulfate) Confirm Administered Dose 50 mg .ROUTE .STK-MED ONE Stop: 10/28/20 10:44 Epinephrine HCl (Epinephrine 1:10,000) 1 mg IVPUSH ASDIRECTED PRN PRN Reason: ACLS Guidelines Fentanyl (Sublimaze) Confirm Administered Dose 100 mcg .ROUTE .STK-MED ONE Stop: 10/28/20 09:29 Fentanyl (Sublimaze) Confirm Administered Dose 100 mcg .ROUTE .STK-MED ONE Stop: 10/28/20 11:12 Fentanyl (Sublimaze) 50 mcg IVPUSH Q5M PRN PRN Reason: Pain Hydromorphone HCl (Dilaudid) 0.5 mg IVPUSH .Q5MIN PRN PRN Reason: Pain (severe 7-10) Stop: 10/29/20 11:28 Tranexamic Acid 1,000 mg/ (Sodium Chloride) 110 mls @ 600 mls/hr IV ASDIRECTED ONE Stop: 10/14/20 06:10 Sodium Chloride (Normal Saline) Confirm Administered Dose 20 mls @ as directed .ROUTE .STK-MED ONE Stop: 10/28/20 07:17 Acetaminophen (Ofirmev) Confirm Administered Dose 100 mls @ as directed .ROUTE .STK-MED ONE Stop: 10/28/20 09:34 Cefazolin Sodium/Dextrose 2 gm (/ Premix) 50 mls @ 100 mls/hr IV Q8H [facility] Stop: 10/29/20 03:29 Last Admin: 10/29/20 02:54 Dose: 100 mls/hr Documented by: Ketorolac Tromethamine (Toradol) 15 mg IVPUSH Q6H [facility] Stop: 10/29/20 05:00 Last Admin: 10/29/20 00:55 Dose: 15 mg Documented by: Labetalol HCl (Normodyne) Confirm Administered Dose 100 mg .ROUTE .STK-MED ONE Stop: 10/28/20 12:39 Lidocaine HCl (Xylocaine-Mpf 1%) Confirm Administered Dose 5 ml .ROUTE .STK-MED ONE Stop: 10/28/20 09:29 Midazolam HCl (Versed 1 Mg/Ml) Confirm Administered Dose 2 mg .ROUTE .STK-MED ONE Stop: 10/28/20 09:29 Naloxone HCl (Narcan) 0.1 mg IVPUSH ASDIRECTED PRN PRN Reason: Respiratory Depression Ondansetron HCl (Zofran) Confirm Administered Dose 4 mg .ROUTE .STK-MED ONE Stop: 10/28/20 10:44 Ondansetron HCl (Zofran) 4 mg IVPUSH ONETIME PRN PRN Reason: Nausea/Vomiting Latanoprost/Pf [ Latanoprost 0.005% Eye Drop] 1 each EYEBOTH BEDTIME [facility] Stop: 10/28/20 23:59 Last Admin: 10/28/20 21:23 Dose: Not Given Documented by: Propofol (Diprivan 20 Ml) Confirm Administered Dose 200 mg .ROUTE .STK-MED ONE Stop: 10/28/20 09:29 Tranexamic Acid (Cyklokapron) 1,000 mg TOP ASDIRECTED ONE Stop: 10/28/20 06:01 Last Admin: 10/28/20 14:29 Dose: Not Given Documented by: Tranexamic Acid (Cyklokapron) Confirm Administered Dose 1,000 mg .ROUTE .STK-MED ONE Stop: 10/28/20 07:27 - Exam Quality Assessment: Reports: DVT Prophylaxis (ASA 325mg, bilateral SCDs, early ambulation) General: Reports: Alert, Oriented, Cooperative, No Acute Distress Lungs: Reports: Normal Respiratory Effort Extremities: No Pedal Edema, Normal Capillary Refill, Joint Swelling (minimal soft tissue swelling), Other (Sensation grossly intact to LE. Actively wiggling toes. ) Wound/Incisions: Reports: Dressing Dry and Intact, Other (surgical dressing CDI. Removed and large AquqCell bandage applied. Incision well approximated with lara. No surrounding erythema.). Denies: Erythema Neurological: Reports: Normal Speech, Normal Tone Psy/Mental Status: Reports: Alert, Normal Affect, Normal Mood
[2020-10-29] MEDS ORDERED: Famotidine 20 MG Tab PO SCH (09:00)
[2020-10-29] MEDS ORDERED: Patient's Own Medication 1 Each EYEBOTH SCH (09:00)
[2020-10-29] MEDS ORDERED: Celecoxib 100 MG Cap PO SCH (09:00)
[2020-10-29] MEDS ORDERED: Losartan 50 MG Tab PO SCH (09:00)
[2020-10-29] MEDS ORDERED: Polyethylene Glycol 3350 Powder 17 GM Packet PO SCH (09:00)
[2020-10-29] MEDS ORDERED: Metoprolol Succinate 25 MG Tab.ER PO SCH (09:00)
[2020-10-29] MEDS ORDERED: Aspirin 325 MG Tab PO SCH (09:00)
--- NOTE | 2020-10-29 09:51 | PCM48HPAN ---
Post Anesthesia Note - EVALUATION WITHIN 48HRS OF ANESTHETIC Vital Signs in Normal Range: Yes Patient Participated in Evaluation: Yes Respiratory Function Stable: Yes Airway Patent: Yes Cardiovascular Function Stable: Yes Hydration Status Stable: Yes Pain Control Satisfactory: Yes Nausea and Vomiting Control Satisfactory: Yes Mental Status Recovered: Yes Vital Signs: Last Vital Signs Temp 36.9 C 10/29/20 07:19 Pulse 95 10/29/20 09:05 Resp 20 10/29/20 07:19 BP 107/60 10/29/20 09:05 Pulse Ox 92 L 10/29/20 07:19 - COMMENTS/OBSERVATIONS Free Text/Narrative:: The patient feels great, with minimal po pain meds overnight. He has no complaints at this time. There were no apparent anesthetic complications at this time. Discharge from Anesthesia service.
--- NOTE | 2020-10-29 10:44 | PCM.CONSN ---
- General Info Date of Service: 10/29/20 Admission Dx/Problem (Free Text): Admission Diagnosis/Problem Admission Diagnosis/Problem Knee pain s/p Right TKA Subjective Update: Reports he is feeling well. Denies chest pain or SOB. Knee pain is tolerable. No concerns and is eager to go home today. Functional Status: Reports: Pain Controlled, Tolerating Diet, Ambulating, Urinating - Review of Systems General: Reports: No Symptoms. Denies: Weakness, Fatigue, Malaise HEENT: Reports: No Symptoms. Denies: Headaches, Visual Changes Pulmonary: Reports: No Symptoms. Denies: Shortness of Breath Cardiovascular: Reports: No Symptoms. Denies: Chest Pain Gastrointestinal: Reports: No Symptoms. Denies: Abdominal Pain, Nausea, Vomiting Genitourinary: Reports: No Symptoms. Denies: Dysuria, Frequency Musculoskeletal: Reports: Joint Pain (R knee pain which is tolerable.). Denies: Neck Pain, Shoulder Pain Skin: Reports: No Symptoms Neurological: Reports: No Symptoms Psychiatric: Reports: No Symptoms - Patient Data Vitals - Most Recent: Last Vital Signs Temp 98.5 F 10/29/20 07:19 Pulse 95 10/29/20 09:05 Resp 20 10/29/20 07:19 BP 107/60 10/29/20 09:05 Pulse Ox 92 L 10/29/20 07:19 Weight - Most Recent: 104.326 kg I&O - Last 24 Hours: Intake & Output 10/28/20 10/29/20 10/29/20 22:59 06:59 14:59 Intake Total 200 1050 Output Total 680 475 Balance -480 575 Lab Results Last 24 Hours: Laboratory Results - last 24 hr 10/28/20 10/28/20 10/28/20 Range/Units 09:43 14:33 14:33 WBC 14.61 H (4.0-11.0) K/uL RBC 4.58 (4.50-5.90) M/uL Hgb 13.7 (13.0-17.0) g/dL Hct 42.0 (38.0-50.0) % MCV 91.7 (80.0-98.0) fL MCH 29.9 (27.0-32.0) pg MCHC 32.6 (31.0-37.0) g/dL RDW Std Deviation 48.7 (28.0-62.0) fl RDW Coeff of Melissa 15 (11.0-15.0) % Plt Count 232 (150-400) K/uL MPV 9.60 (7.40-12.00) fL Neut % (Auto) 94.2 H (48.0-80.0) % Lymph % (Auto) 4.4 L (16.0-40.0) % Shannon % (Auto) 1.3 (0.0-15.0) % Eos % (Auto) 0.0 (0.0-7.0) % Baso % (Auto) 0.1 (0.0-1.5) % Neut # (Auto) 13.8 H (1.4-5.7) K/uL Lymph # (Auto) 0.6 (0.6-2.4) K/uL Shannon # (Auto) 0.2 (0.0-0.8) K/uL Eos # (Auto) 0.0 (0.0-0.7) K/uL Baso # (Auto) 0.0 (0.0-0.1) K/uL Nucleated RBC % 0.0 /100WBC Nucleated RBCs # 0 K/uL Sodium 138 (136-148) mmol/L Potassium 4.3 (3.5-5.1) mmol/L Chloride 105 (98-107) mmol/L Carbon Dioxide 25.9 (21.0-32.0) mmol/L BUN 14 (7.0-18.0) mg/dL Creatinine 1.0 (0.8-1.3) mg/dL Est Cr Clr Drug Dosing 72.66 mL/min Estimated GFR (MDRD) > 60.0 ml/min Glucose 124 H (74-106) mg/dL Hemoglobin A1c (4.5 - 6.2) % Calcium 8.4 L (8.5-10.1) mg/dL Magnesium 2.0 (1.8-2.4) mg/dL Triglycerides (0-200) mg/dL Cholesterol (50-200) mg/dL LDL Cholesterol, Calc (60-180) mg/dL VLDL Cholesterol (5-55) mg/dL HDL Cholesterol (40-60) mg/dL Cholesterol/HDL Ratio (3.3-6.0) TSH 3rd Generation (0.36-3.74) uIU/mL Blood Type A POSITIVE Antibody Screen NEGATIVE 10/28/20 10/28/20 10/29/20 Range/Units 14:33 14:33 05:30 WBC (4.0-11.0) K/uL RBC (4.50-5.90) M/uL Hgb 11.8 L (13.0-17.0) g/dL Hct 36.3 L (38.0-50.0) % MCV (80.0-98.0) fL MCH (27.0-32.0) pg MCHC (31.0-37.0) g/dL RDW Std Deviation (28.0-62.0) fl RDW Coeff of Melissa (11.0-15.0) % Plt Count (150-400) K/uL MPV (7.40-12.00) fL Neut % (Auto) (48.0-80.0) % Lymph % (Auto) (16.0-40.0) % Shannon % (Auto) (0.0-15.0) % Eos % (Auto) (0.0-7.0) % Baso % (Auto) (0.0-1.5) % Neut # (Auto) (1.4-5.7) K/uL Lymph # (Auto) (0.6-2.4) K/uL Shannon # (Auto) (0.0-0.8) K/uL Eos # (Auto) (0.0-0.7) K/uL Baso # (Auto) (0.0-0.1) K/uL Nucleated RBC % /100WBC Nucleated RBCs # K/uL Sodium (136-148) mmol/L Potassium (3.5-5.1) mmol/L Chloride (98-107) mmol/L Carbon Dioxide (21.0-32.0) mmol/L BUN (7.0-18.0) mg/dL Creatinine (0.8-1.3) mg/dL Est Cr Clr Drug Dosing mL/min Estimated GFR (MDRD) ml/min Glucose (74-106) mg/dL Hemoglobin A1c 5.7 (4.5 - 6.2) % Calcium (8.5-10.1) mg/dL Magnesium (1.8-2.4) mg/dL Triglycerides 73 (0-200) mg/dL Cholesterol 199 (50-200) mg/dL LDL Cholesterol, Calc 140 (60-180) mg/dL VLDL Cholesterol 14 (5-55) mg/dL HDL Cholesterol 44 (40-60) mg/dL Cholesterol/HDL Ratio 4.5 (3.3-6.0) TSH 3rd Generation 0.78 (0.36-3.74) uIU/mL Blood Type Antibody Screen 10/29/20 Range/Units 05:30 WBC (4.0-11.0) K/uL RBC (4.50-5.90) M/uL Hgb (13.0-17.0) g/dL Hct (38.0-50.0) % MCV (80.0-98.0) fL MCH (27.0-32.0) pg MCHC (31.0-37.0) g/dL RDW Std Deviation (28.0-62.0) fl RDW Coeff of Melissa (11.0-15.0) % Plt Count (150-400) K/uL MPV (7.40-12.00) fL Neut % (Auto) (48.0-80.0) % Lymph % (Auto) (16.0-40.0) % Shannon % (Auto) (0.0-15.0) % Eos % (Auto) (0.0-7.0) % Baso % (Auto) (0.0-1.5) % Neut # (Auto) (1.4-5.7) K/uL Lymph # (Auto) (0.6-2.4) K/uL Shannon # (Auto) (0.0-0.8) K/uL Eos # (Auto) (0.0-0.7) K/uL Baso # (Auto) (0.0-0.1) K/uL Nucleated RBC % /100WBC Nucleated RBCs # K/uL Sodium 142 (136-148) mmol/L Potassium 4.1 (3.5-5.1) mmol/L Chloride 108 H (98-107) mmol/L Carbon Dioxide 26.9 (21.0-32.0) mmol/L BUN 20 H (7.0-18.0) mg/dL Creatinine 1.2 (0.8-1.3) mg/dL Est Cr Clr Drug Dosing 60.55 mL/min Estimated GFR (MDRD) > 60.0 ml/min Glucose 127 H (74-106) mg/dL Hemoglobin A1c (4.5 - 6.2) % Calcium 8.2 L (8.5-10.1) mg/dL Magnesium 2.2 (1.8-2.4) mg/dL Triglycerides (0-200) mg/dL Cholesterol (50-200) mg/dL LDL Cholesterol, Calc (60-180) mg/dL VLDL Cholesterol (5-55) mg/dL HDL Cholesterol (40-60) mg/dL Cholesterol/HDL Ratio (3.3-6.0) TSH 3rd Generation (0.36-3.74) uIU/mL Blood Type Antibody Screen Med Orders - Current: Current Medications Al Hydroxide/Mg Hydroxide (Mag-Al Plus) 30 ml PO Q4H PRN PRN Reason: Indigestion Aspirin (Aspirin) 325 mg PO DAILY [facility] Last Admin: 10/29/20 09:03 Dose: 325 mg Documented by: Bisacodyl (Dulcolax) 10 mg RECTAL DAILY PRN PRN Reason: Constipation Celecoxib (Celebrex) 200 mg PO DAILY [facility] Last Admin: 10/29/20 09:03 Dose: 200 mg Documented by: Diphenhydramine HCl (Benadryl) 25 - 50 mg PO Q6H PRN PRN Reason: Itching Docusate Sodium (Colace) 100 mg PO BID PRN PRN Reason: Constipation Famotidine (Pepcid) 40 mg IVPUSH ONARRIVE [facility] Last Admin: 10/28/20 10:00 Dose: 40 mg Documented by: Famotidine (Pepcid) 40 mg IVPUSH ONARRIVE [facility] Famotidine (Pepcid) 40 mg PO DAILY [facility] Last Admin: 10/29/20 09:05 Dose: 40 mg Documented by: Ropivacaine 49.25 ml/Ketorolac Tromethamine 30 mg/Epinephrine HCl 0.5 mg/ Clonidine HCl 80 mcg/ Sodium Chloride 75 mls @ 50 mls/sec INJECT ASDIRECTED KD Cefazolin Sodium/Dextrose 2 gm (/ Premix) 50 mls @ 100 mls/hr IV ONCALL [facility] Lactated Ringer's (Ringers, Lactated) 1,000 mls @ 100 mls/hr IV ASDIRECTED [facility] Last Admin: 10/28/20 09:55 Dose: 100 mls/hr Documented by: Lactated Ringer's (Ringers, Lactated) 1,000 mls @ 100 mls/hr IV ASDIRECTED [facility] Last Admin: 10/28/20 14:10 Dose: 100 mls/hr Documented by: Ropivacaine 49.25 ml/Ketorolac Tromethamine 30 mg/Epinephrine HCl 0.5 mg/Clonidine HCl 80 mcg/ Sodium Chloride 75 mls @ 50 mls/sec INJECT ASDIRECTED [facility] Cefazolin Sodium/Dextrose 2 gm (/ Premix) 50 mls @ 100 mls/hr IV ONCALL [facility] Losartan Potassium (Cozaar) 100 mg PO DAILY [facility] Last Admin: 10/29/20 09:04 Dose: 100 mg Documented by: Metoprolol Succinate (Toprol Xl) 25 mg PO DAILY [facility] Last Admin: 10/29/20 09:05 Dose: 25 mg Documented by: Morphine Sulfate (Morphine) 1 - 2 mg IVPUSH Q3H PRN PRN Reason: Pain Ondansetron HCl (Zofran) 4 mg IVPUSH Q6H PRN PRN Reason: Nausea/Vomiting Oxycodone/Acetaminophen (Percocet 325-5 Mg) 1 - 2 tab PO Q4H PRN PRN Reason: Pain Last Admin: 10/29/20 00:09 Dose: 2 tab Documented by: Patient Own Medication (Ptom) 1 each EYEBOTH DAILY [facility] Polyethylene Glycol (Miralax) 17 gm PO DAILY [facility] Last Admin: 10/29/20 09:06 Dose: 17 gm Documented by: Scopolamine (Transderm-Scop) 1.5 mg TRDERM ONARRIVE [facility] Last Admin: 10/28/20 09:45 Dose: 1.5 mg Documented by: Scopolamine (Transderm-Scop) 1.5 mg TRDERM ONARRIVE [facility] Sodium Chloride (Saline Flush) 10 ml FLUSH ASDIRECTED PRN PRN Reason: Keep Vein Open Sodium Chloride (Saline Flush) 2.5 ml FLUSH ASDIRECTED PRN PRN Reason: Keep Vein Open Tramadol HCl (Ultram) 50 - 100 mg PO Q6H PRN PRN Reason: Pain Discontinued Medications Albuterol (Proventil Neb Soln) 2.5 mg NEB ONETIME PRN PRN Reason: Wheezing Atropine Sulfate (Atropine 0.1 Mg/Ml) 0.5 mg IVPUSH ASDIRECTED PRN PRN Reason: Hypo-perfusion Atropine Sulfate (Atropine 0.1 Mg/Ml) 1 mg IVPUSH ASDIRECTED PRN PRN Reason: Hypo-Perfusion Bupivacaine HCl (Marcaine 0.5%) Confirm Administered Dose 30 ml .ROUTE .STK-MED ONE Stop: 10/28/20 09:42 Cefazolin Sodium/Dextrose (Ancef) Confirm Administered Dose 2 gm IV .STK-MED ONE Stop: 10/28/20 09:49 Dexamethasone (Dexamethasone) Confirm Administered Dose 20 mg .ROUTE .STK-MED ONE Stop: 10/28/20 10:44 Dextrose/Water (Dextrose 50% In Water) 50 ml IVPUSH ASDIRECTED PRN PRN Reason: Hypoglycemia Ephedrine Sulfate (Ephedrine Sulfate) Confirm Administered Dose 50 mg .ROUTE .STK-MED ONE Stop: 10/28/20 10:44 Epinephrine HCl (Epinephrine 1:10,000) 1 mg IVPUSH ASDIRECTED PRN PRN Reason: ACLS Guidelines Fentanyl (Sublimaze) Confirm Administered Dose 100 mcg .ROUTE .STK-MED ONE Stop: 10/28/20 09:29 Fentanyl (Sublimaze) Confirm Administered Dose 100 mcg .ROUTE .STK-MED ONE Stop: 10/28/20 11:12 Fentanyl (Sublimaze) 50 mcg IVPUSH Q5M PRN PRN Reason: Pain Hydromorphone HCl (Dilaudid) 0.5 mg IVPUSH .Q5MIN PRN PRN Reason: Pain (severe 7-10) Stop: 10/29/20 11:28 Tranexamic Acid 1,000 mg/ (Sodium Chloride) 110 mls @ 600 mls/hr IV ASDIRECTED ONE Stop: 10/14/20 06:10 Sodium Chloride (Normal Saline) Confirm Administered Dose 20 mls @ as directed .ROUTE .STK-MED ONE Stop: 10/28/20 07:17 Acetaminophen (Ofirmev) Confirm Administered Dose 100 mls @ as directed .ROUTE .STK-MED ONE Stop: 10/28/20 09:34 Cefazolin Sodium/Dextrose 2 gm (/ Premix) 50 mls @ 100 mls/hr IV Q8H [facility] Stop: 10/29/20 03:29 Last Admin: 10/29/20 02:54 Dose: 100 mls/hr Documented by: Ketorolac Tromethamine (Toradol) 15 mg IVPUSH Q6H [facility] Stop: 10/29/20 05:00 Last Admin: 10/29/20 00:55 Dose: 15 mg Documented by: Labetalol HCl (Normodyne) Confirm Administered Dose 100 mg .ROUTE .STK-MED ONE Stop: 10/28/20 12:39 Lidocaine HCl (Xylocaine-Mpf 1%) Confirm Administered Dose 5 ml .ROUTE .STK-MED ONE Stop: 10/28/20 09:29 Midazolam HCl (Versed 1 Mg/Ml) Confirm Administered Dose 2 mg .ROUTE .STK-MED ONE Stop: 10/28/20 09:29 Naloxone HCl (Narcan) 0.1 mg IVPUSH ASDIRECTED PRN PRN Reason: Respiratory Depression Ondansetron HCl (Zofran) Confirm Administered Dose 4 mg .ROUTE .STK-MED ONE Stop: 10/28/20 10:44 Ondansetron HCl (Zofran) 4 mg IVPUSH ONETIME PRN PRN Reason: Nausea/Vomiting Latanoprost/Pf [ Latanoprost 0.005% Eye Drop] 1 each EYEBOTH BEDTIME [facility] Stop: 10/28/20 23:59 Last Admin: 10/28/20 21:23 Dose: Not Given Documented by: Propofol (Diprivan 20 Ml) Confirm Administered Dose 200 mg .ROUTE .STK-MED ONE Stop: 10/28/20 09:29 Tranexamic Acid (Cyklokapron) 1,000 mg TOP ASDIRECTED ONE Stop: 10/28/20 06:01 Last Admin: 10/28/20 14:29 Dose: Not Given Documented by: Tranexamic Acid (Cyklokapron) Confirm Administered Dose 1,000 mg .ROUTE .STK-MED ONE Stop: 10/28/20 07:27 - Exam General: Alert, Oriented, Cooperative, No Acute Distress Lungs: Clear to Auscultation, Normal Respiratory Effort Cardiovascular: Regular Rate, Regular Rhythm GI/Abdominal Exam: Normal Bowel Sounds, Soft, Non-Tender Extremities: Normal Inspection, Normal Range of Motion, Non-Tender, Pedal Edema (+1 non pitting BLE) Neurological: No New Focal Deficit Psy/Mental Status: Alert, Normal Affect, Normal Mood Sepsis Event Note - Evaluation Sepsis Screening Result: No Definite Risk - Focused Exam Vital Signs: Vital Signs Temp Pulse Pulse Resp BP BP Pulse Ox 10/29/20 09:05 95 107/60 10/29/20 09:04 107/60 10/29/20 07:19 98.5 F 95 20 107/60 92 L 10/29/20 04:15 98.4 F 85 20 107/58 L 95 10/29/20 00:18 98.4 F 73 20 111/54 L 95 Consult PN Assessment/Plan POD#: 1 Procedures: Procedures SARS-COV-2 COVID-19 AMP PRB (10/10/20) THERAPEUTIC EXERCISES (01/11/20) TTE W/DOPPLER COMPLETE (10/11/20) VASOPNEUMATIC DEVICE THERAPY (01/11/20) X-RAY EXAM KNEE 4 OR MORE (09/17/20) X-RAY EXAM OF KNEE 1 OR 2 (02/20/20) X-RAY EXAM OF KNEE 3 (12/21/19) (1) S/P total knee arthroplasty SNOMED Code(s): 7626019550774, 530279174, 5032510726926 Code(s): Z96.659 - PRESENCE OF UNSPECIFIED ARTIFICIAL KNEE JOINT Qualifiers: Laterality: right Qualified Code(s): Z96.651 - Presence of right artificial knee joint (2) Hypertension SNOMED Code(s): 24875632 Code(s): I10 - ESSENTIAL (PRIMARY) HYPERTENSION (3) Obesity SNOMED Code(s): 648362901, 720251245 Code(s): E66.9 - OBESITY, UNSPECIFIED Problem List Initiated/Reviewed/Updated: Yes My Orders Last 24 Hours: My Active Orders 10/29/20 09:00 Losartan [Cozaar] 100 mg PO DAILY Metoprolol Succinate [Toprol XL] 25 mg PO DAILY Patient's Own Medication [Ptom] 1 each EYEBOTH DAILY Plan: This 65-year-old male admitted with right TKA Dr. Gupta. Hospitalist service consulted for medical management of hypertension 1. Right TKA -Orders per orthopedics -Encouraged incentive spirometer 2. Hypertension - Stable -Continue metoprolol and losartan - A1c 5.7, TSH 0.78 and lipid panel WNL. VTE prophylaxis: ASA per orthopedics CODE STATUS: Full code
== END 2020-10-29 11:55 | disposition home or self-care (01) ==
LOC: MW.SDS 09:20 → MW.MS 13:48 → MW.SDS 10-29 11:55
PROVIDERS: ATTEND Orthopaedic Surgery
DX: M17.11 Unilateral primary osteoarthritis, right knee (principal); Z01.812 Encounter for preprocedural laboratory examination; Z20.828 Contact with and (suspected) exposure to other viral communicable diseases; D64.9 Anemia, unspecified; I10 Essential (primary) hypertension; E66.9 Obesity, unspecified; F17.210 Nicotine dependence, cigarettes, uncomplicated; Z79.899 Other long term (current) drug therapy
CPT/HCPCS: 27447; 36415; 73560; 80048; 80061; 83036; 83735; 84443; 85014; 85018; 85025; 86850; 86900; 86901; 87635; 88300; 97161; A9270; J0131; J0690; J1100; J1885; J2001; J2250; J2704; J3490; J7120; J2405; J3010; U0002